=== PATIENT | female | born 1945 | race Caucasian/White ===

== ENCOUNTER → 2017-02-09 | Outpatient (CLI) | payer MEDICARE ==
--- NOTE | 2017-02-15 10:00 | P.ARTDOP ---
Arterial Doppler LOWER EXTREMITY ARTERIAL DOPPLER: DATE OF SERVICE: 02/09/2017 Reason for study: Bilateral claudication. Doppler waveforms: Multiphasic bilaterally throughout. Pulse volume recording: Mild distal blunting. Pressure gradients: None. Ankle-brachial indices: Greater than 1 bilaterally. Toe pressures: 93 on the right, 95 on the left Impression: Normal study.
== END | disposition home or self-care (01) ==
LOC: RADUSWWP 12:51
PROVIDERS: ATTEND Family Medicine
DX: I73.9 Peripheral vascular disease, unspecified (principal)
CPT/HCPCS: 93923

== ENCOUNTER → 2017-10-03 | Outpatient (CLI) | payer MEDICARE ==
--- NOTE | 2017-10-03 15:48 | XR ---
EXAM TYPE: LUMBAR SPINE X RAY SERIES COMPARISON: NONE HISTORY: Pain TECHNIQUE: 4 views are submitted. FINDINGS: Alignment is anatomic. The pedicles are intact. The transverse processes are intact. There is no s pondylolysis or spondylolisthesis. Diffuse osteopenia noted. Surgical clips in the right upper quadr ant. Vascular calcifications noted. Findings suggest previous surgery correlate for hernia repair. Sc lerotic density overlying the right iliac bone is nonspecific. Severe degenerative disc disease at levels L2-S1 with vacuum disc. Severe facet arthropathy. Suspect bilateral foraminal encroachment at these levels. Mild to moderate degenerative disc disease at remai denisse levels. Slight curvature the spine noted. IMPRESSION: 1. Severe multilevel degenerative disc disease and facet arthropathy with suspected bilateral foramin al encroachment levels L2-S1.
== END | disposition home or self-care (01) ==
LOC: RADXRMAIN 15:22
PROVIDERS: ATTEND Family Medicine
DX: M51.36 Other intervertebral disc degeneration, lumbar region (principal); M46.96 Unspecified inflammatory spondylopathy, lumbar region; M47.816 Spondylosis without myelopathy or radiculopathy, lumbar region
CPT/HCPCS: 72100

== ENCOUNTER → 2020-04-10 | Outpatient (CLI) | payer MEDICARE ==
--- NOTE | 2020-05-01 22:31 | EM ---
EVENT MONITOR PROCEDURE: Fourteen days event monitor. REFERRING PHYSICIAN: Dr. Bobby Yepez. INDICATION: Palpitations. FINDINGS: The baseline rhythm appeared to be sinus mechanism. The patient was monitored for 14 days. During these 14 days monitoring, the patient did have multiple episodes of narrow complex tachycardia consistent with paroxysmal atrial tachycardia. No evidence of any sinus pause or sinus arrest. CONCLUSION: 1. This is a 14-day event monitor. 2. The baseline rhythm is a sinus mechanism. 3. The patient did have multiple episodes of supraventricular tachycardia, presented as paroxysmal atrial tachycardia. 4. No evidence of sinus pause or sinus arrest. MMODL / IJN: [id number] /
== END | disposition home or self-care (01) ==
LOC: RADECHMAIN 12:22
PROVIDERS: ATTEND Family Medicine
DX: I47.1 Supraventricular tachycardia (principal); Z88.5 Allergy status to narcotic agent; Z88.9 Allergy status to unspecified drugs, medicaments and biological substances
CPT/HCPCS: 93270

== ENCOUNTER 2021-03-29 16:06 | Emergency (ER) | payer MEDICARE ==
[2021-03-29 16:16] VITALS: BP 146/81; PULSE 68; RESP 18; TEMP 97.9
[2021-03-29 17:03] LABS: Basophils % (A) 1 %; Eosinophils # (A) 0.1 k/uL (0-0.7); Eosinophils % (A) 2 %; HCT 44.5 % (34.0-46.0); HGB 14.7 gm/dL (11.4-16.0); Lymphocytes # (A) 1.8 k/uL (1.0-4.8); Lymphocytes % (A) 34 %; MCH 29.1 pg (25.0-35.0); MCHC 33.2 g/dL (31.0-37.0); MCV 87.9 fL (80.0-100.0); Mean Platelet Volume 6.8; Monocytes # (A) 0.3 k/uL (0-1.0); Monocytes % (A) 5 %; Neutrophils # (A) 2.9 k/uL (1.3-7.7); Neutrophils % (A) 55 %; Platelet Count 265 k/uL (150-450); RBC 5.06 m/uL (3.80-5.40); RDW 13.4 % (11.5-15.5); WBC 5.4 k/uL (3.8-10.6)
--- NOTE | 2021-03-29 17:04 | XR ---
EXAMINATION TYPE: XR chest 2V DATE OF EXAM: 03/29/2021 COMPARISON: 11/19/2013 HISTORY: Chest pain TECHNIQUE: 2 views FINDINGS: Heart and mediastinum are normal. Lungs are clear. Diaphragm is normal. Bony thorax is inta ct. IMPRESSION: Normal chest. No change
[2021-03-29 17:14] LABS: INR 0.9 (<1.2); Partial Thromboplastin Time 22.4 sec (22.0-30.0)
[2021-03-29 17:16] LABS: ALT 18 U/L (4-34); AST 26 U/L (14-36); African American GFR (CKD) >90 (>60 ml/min/1.73 sqM); Albumin 4.8 g/dL (3.5-5.0); Alkaline Phosphatase 73 U/L (38-126); Anion Gap 12 mmol/L; Blood Urea Nitrogen 18 mg/dL (7-17); Calcium 9.9 mg/dL (8.4-10.2); Carbon Dioxide 23 mmol/L (22-30); Chloride 101 mmol/L (98-107); Glucose 189 mg/dL (74-99); Non-African American GFR(CKD) 84 (>60 ml/min/1.73 sqM); Potassium 4.7 mmol/L (3.5-5.1); Sodium 136 mmol/L (137-145); Total Bilirubin 0.3 mg/dL (0.2-1.3)
[2021-03-29] MEDS ORDERED: ASPIRIN 81 MG PO STA (17:22)
[2021-03-29] MEDS ORDERED: NITROGLYCERIN OINT 1 INCH/GM PACKET TOPICAL STA (17:22)
--- NOTE | 2021-03-29 17:25 | ED ---
General Adult HPI - General Chief complaint: Chest Pain Stated complaint: Chest pain,slurred speech Time Seen by Provider: 03/29/21 16:15 Source: patient, RN notes reviewed, old records reviewed Mode of arrival: ambulatory Limitations: no limitations - History of Present Illness Initial comments: This is a 75-year-old female with past medical history significant for diabetes hypertension high cholesterol. Patient also strong family history of heart d isease. Patient comes in today because over the last few weeks she's had multiple episodes of slurred speech which she states only last 1-2 seconds. But she also has been experiencing chest pain that lasts anywhere from 10-20 and it's and she states associated with the chest pain aren't diaphoretic episodes on occasion. Patient denies any difficulty breathing shortness of breath. Patient denies any chest pain currently. Patient denies any radiation of the pain. Patient denies any abdominal pain patient denies nausea vomiting diarrhea. Patient denies any recent fever chills or cough per patient denies any lightheadedness or dizziness or near syncopal episode. - Related Data Home Medications Medication Instructions Recorded Confirmed ALPRAZolam [Xanax] 0.25 mg PO Q8HR PRN 03/20/16 03/20/16 Aspirin 81 mg PO DAILY 03/20/16 03/20/16 Citalopram Hydrobromide [CeleXA] 40 mg PO DAILY 03/20/16 03/20/16 Glimepiride [Amaryl] 4 mg PO AC-BRKFST 03/20/16 03/20/16 HYDROcodone/APAP 10-325MG [[place] 1 tab PO Q6H PRN 03/20/16 03/20/16 10-325] Zafirlukast [Accolate] 20 mg PO BID 03/20/16 03/20/16 Zolpidem Tartrate [Ambien] 5 mg PO HS 03/20/16 03/20/16 sitaGLIPtin [Januvia] 100 mg PO DAILY 03/20/16 03/20/16 Previous Rx's Medication Instructions Recorded Meclizine [Antivert] 25 mg PO TID PRN #20 tab 03/20/16 Ondansetron Odt [Zofran Odt] 4 mg PO Q8HR PRN #12 tab 03/20/16 Allergies Allergy/AdvReac Type Severity Reaction Status Date / Time codeine AdvReac Unknown Verified 03/29/21 16:16 Review of Systems ROS Statement: Those systems with pertinent positive or pertinent negative responses have been documented in the HPI. ROS Other: All systems not noted in ROS Statement are negative. Past Medical History Past Medical History: Diabetes Mellitus, Hypertension History of Any Multi-Drug Resistant Organisms: None Reported Past Surgical History: Cholecystectomy, Hernia Repair, Hysterectomy, Joint Replacement Additional Past Surgical History / Comment(s): right hip replacement Past Psychological History: Anxiety Smoking Status: Never smoker Past Alcohol Use History: Rare Past Drug Use History: None Reported General Exam - General Exam Comments Initial Comments: GENERAL: Patient is well-developed and well-nourished. Patient is nontoxic and well- hydrated and is in mild distress. ENT: Neck is soft and supple. No significant lymphadenopathy is noted. Oropharynx is clear. Moist mucous membranes. Neck has full range of motion without eliciting any pain. EYES: The sclera were anicteric and conjunctiva were pink and moist. Extraocular movements were intact and pupils were equal round and reactive to light. Eyelids were unremarkable. PULMONARY: Unlabored respirations. Good breath sounds bilaterally. No audible rales rhonchi or wheezing was noted. CARDIOVASCULAR: There is a regular rate and rhythm without any murmurs gallops or rubs. ABDOMEN: Soft and nontender with normal bowel sounds. No palpable organomegaly was noted. There is no palpable pulsatile mass. SKIN: Skin is clear with no lesions or rashes and otherwise unremarkable. NEUROLOGIC: Patient is alert and oriented x3. Cranial nerves II through XII are grossly intact. Motor and sensory are also intact. Normal speech, volume and content. Symmetrical smile. Cerebellar exam grossly intact. MUSCULOSKELETAL: Normal extremities with adequate strength and full range of motion. No lower extremity swelling or edema. No calf tenderness. LYMPHATICS: No significant lymphadenopathy is noted PSYCHIATRIC: Normal psychiatric evaluation. Limitations: no limitations Course Vital Signs 03/29/21 16:13 Temperature 97.9 F Pulse Rate 68 Respiratory 18 Rate Blood Pressure 146/81 O2 Sat by Pulse 99 Oximetry Medical Decision Making - Medical Decision Making Patient currently has no symptoms or chest pain or neurologic deficit. EKG shows normal sinus rhythm at 62 bpm ME interval is on her 60 QRS is 62 QT interval 46 QTC is 420. Patient's EKG shows no ST segment elevation or depression. Patient's CT of brain shows no acute abnormality. Patient's troponin was normal. One taken the room and the patient indicated to me she never had any symptoms throughout her whole ED stay. I told the patient because of her chest pain and occasional slurred speech and she refused to stay she stated she has a dog is diabetic and needs his shots. I indicated to her that it still could be her heart or she could've had a TIA so I would recommend staying and again she refused she stated she would follow-up with Dr. Yepez as soon as possible - Lab Data Result diagrams: 03/29/21 16:52 03/29/21 16:52 Lab Results 03/29/21 03/29/21 03/29/21 Range/Units 16:52 16:52 16:52 WBC 5.4 (3.8-10.6) k/uL RBC 5.06 (3.80-5.40) m/uL Hgb 14.7 (11.4-16.0) gm/dL Hct 44.5 (34.0-46.0) % MCV 87.9 (80.0-100.0) fL MCH 29.1 (25.0-35.0) pg MCHC 33.2 (31.0-37.0) g/dL RDW 13.4 (11.5-15.5) % Plt Count 265 (150-450) k/uL MPV 6.8 Neutrophils % 55 % Lymphocytes % 34 % Monocytes % 5 % Eosinophils % 2 % Basophils % 1 % Neutrophils # 2.9 (1.3-7.7) k/uL Lymphocytes # 1.8 (1.0-4.8) k/uL Monocytes # 0.3 (0-1.0) k/uL Eosinophils # 0.1 (0-0.7) k/uL Basophils # 0.0 (0-0.2) k/uL PT 10.0 (9.0-12.0) sec INR 0.9 (<1.2) APTT 22.4 (22.0-30.0) sec Sodium 136 L (137-145) mmol/L Potassium 4.7 (3.5-5.1) mmol/L Chloride 101 (98-107) mmol/L Carbon Dioxide 23 (22-30) mmol/L Anion Gap 12 mmol/L BUN 18 H (7-17) mg/dL Creatinine 0.71 (0.52-1.04) mg/dL Est GFR (CKD-EPI)AfAm >90 (>60 ml/min/1.73 sqM) Est GFR (CKD-EPI)NonAf 84 (>60 ml/min/1.73 sqM) Glucose 189 H (74-99) mg/dL Calcium 9.9 (8.4-10.2) mg/dL Total Bilirubin 0.3 (0.2-1.3) mg/dL AST 26 (14-36) U/L ALT 18 (4-34) U/L Alkaline Phosphatase 73 (38-126) U/L Troponin I (0.000-0.034) ng/mL Total Protein 7.0 (6.3-8.2) g/dL Albumin 4.8 (3.5-5.0) g/dL 03/29/21 Range/Units 16:52 WBC (3.8-10.6) k/uL RBC (3.80-5.40) m/uL Hgb (11.4-16.0) gm/dL Hct (34.0-46.0) % MCV (80.0-100.0) fL MCH (25.0-35.0) pg MCHC (31.0-37.0) g/dL RDW (11.5-15.5) % Plt Count (150-450) k/uL MPV Neutrophils % % Lymphocytes % % Monocytes % % Eosinophils % % Basophils % % Neutrophils # (1.3-7.7) k/uL Lymphocytes # (1.0-4.8) k/uL Monocytes # (0-1.0) k/uL Eosinophils # (0-0.7) k/uL Basophils # (0-0.2) k/uL PT (9.0-12.0) sec INR (<1.2) APTT (22.0-30.0) sec Sodium (137-145) mmol/L Potassium (3.5-5.1) mmol/L Chloride (98-107) mmol/L Carbon Dioxide (22-30) mmol/L Anion Gap mmol/L BUN (7-17) mg/dL Creatinine (0.52-1.04) mg/dL Est GFR (CKD-EPI)AfAm (>60 ml/min/1.73 sqM) Est GFR (CKD-EPI)NonAf (>60 ml/min/1.73 sqM) Glucose (74-99) mg/dL Calcium (8.4-10.2) mg/dL Total Bilirubin (0.2-1.3) mg/dL AST (14-36) U/L ALT (4-34) U/L Alkaline Phosphatase (38-126) U/L Troponin I <0.012 (0.000-0.034) ng/mL Total Protein (6.3-8.2) g/dL Albumin (3.5-5.0) g/dL Disposition Clinical Impression: Chest pain, TIA (transient ischemic attack) Disposition: Left Against Medical Advice Instructions (If sedation given, give patient instructions): Chest Pain (ED), Transient Ischemic Attack (ED) Referrals: Bobby Yepez DO [Primary Care Provider] - 1-2 days Time of Disposition: 18:52
--- NOTE | 2021-03-29 18:32 | CT ---
EXAMINATION TYPE: CT brain wo con DATE OF EXAM: 03/29/2021 COMPARISON: 04/19/2016 HISTORY: Slurred speech for [address] DLP: 1143.4 mGycm Automated exposure control for dose reduction was used. There is mild cerebral atrophy. There is no mass effect nor midline shift. There is no sign of intrac ranial hemorrhage. Calvarium is intact. The skull base is intact. There is normal aeration of the mas toid sinuses. IMPRESSION: Cerebral atrophy. No acute intracranial abnormality. No change.
== END 2021-03-29 19:08 | disposition left against medical advice (07) ==
LOC: EC 16:06
DX: G45.9 Transient cerebral ischemic attack, unspecified (principal); E11.9 Type 2 diabetes mellitus without complications; I10 Essential (primary) hypertension
CPT/HCPCS: 36415; 70450; 71046; 80053; 84484; 85025; 85610; 85730; 93005; 99285

== ENCOUNTER → 2021-08-02 | Outpatient (CLI) | payer MEDICARE ==
--- NOTE | 2021-08-02 23:09 | US ---
EXAMINATION TYPE: US carotid duplex BILAT DATE OF EXAM: 08/02/2021 COMPARISON: 04/19/2016 CLINICAL HISTORY: 75-year-old female G51.9 FACIAL NUMBNESS. TECHNIQUE: Carotid duplex ultrasound examination. In the erect upper criteria is utilized. FINDINGS: EXAM MEASUREMENTS: RIGHT: Peak Systolic Velocity (PSV) cm/sec ----- Right CCA: 58.1 ----- Right ICA: 104.3 ----- Right ECA: 83.6 ICA/CCA ratio: 1.8 RIGHT: End Diastole cm/sec ----- Right CCA: 12.5 ----- Right ICA: 35.7 ----- Right ECA: 0.0 LEFT: Peak Systolic Velocity (PSV) cm/sec ----- Left CCA: 54.6 ----- Left ICA: 99.6 ----- Left ECA: 62.2 ICA/CCA ratio: 1.8 LEFT: End Diastole cm/sec ----- Left CCA: 11.0 ----- Left ICA: 33.6 ----- Left ECA: 0.0 VERTEBRALS (direction of flow): Right Vertebral: Antegrade Left Vertebral: Antegrade Rhythm: Normal Reverberatory Skimmer notes: No significant stenosis seen. [id number] shadowing plaque noted. IMPRESSION: No hemodynamically significant internal carotid artery stenosis on either side. Criteria for Assigning % of Stenosis / Diameter reduction (Estimation based on the indirect measurements of the internal carotid artery velocities (ICA PSV). 1. Normal (no stenosis)=ICA PSV < 125 cm/s: ratio < 2.0: ICA EDV<40 cm/s. 2. Less than 50% stenosis=ICA PSV < 125 cm/s: ratio < 2.0: ICA EDV<40 cm/s. 3. 50 to 69% stenosis=ICA PSV of 125 to 230 cm/s: ration 2.0 ? 4.0: ICA EDV 40-100 cm/s. 4. Greater than 70% stenosis to near occlusion= ICA PSV > 230 cm/s: ratio > 4.0: ICA EDV > 100 cm/s. 5. Near occlusion= ICA PSV velocities may be low or undetectable: variable ratio and ICA EDV. 6. Total occlusion=unable to detect flow.
== END | disposition home or self-care (01) ==
LOC: RADUSWWP 15:27
PROVIDERS: ATTEND Family Medicine
DX: G51.9 Disorder of facial nerve, unspecified (principal)
CPT/HCPCS: 93880

== ENCOUNTER → 2022-05-26 | Outpatient (CLI) | payer MEDICARE ==
[2022-05-26 15:58] LABS: Basophils # (A) 0.04 X 10*3/uL (0.00-0.10); Basophils % (A) 0.9 %; Eosinophils # (A) 0.16 X 10*3/uL (0.04-0.35); Eosinophils % (A) 3.5 %; HCT 40.7 % (37.2-46.3); HGB 13.3 g/dL (12.0-15.0); Immature Grans, Automated 0.7 %; Lymphocytes # (A) 2.04 X 10*3/uL (0.90-5.00); Lymphocytes % (A) 44.9 %; MCH 29.2 pg (27.0-32.0); MCHC 32.7 g/dL (32.0-37.0); MCV 89.5 fL (80.0-97.0); Mean Platelet Volume 9.7 fL (9.5-12.2); Monocytes # (A) 0.35 X 10*3/uL (0.20-1.00); Monocytes % (A) 7.7 %; NRBC Per 100 WBC 0 /100 WBCS (0.0-0.0); Neutrophils # (A) 1.92 X 10*3/uL (1.80-7.70); Neutrophils % (A) 42.3 %; Platelet Count 241 X 10*3/uL (140-440); RBC 4.55 X 10*6/uL (4.10-5.20); RDW 14.4 % (11.5-14.5); WBC 4.54 X 10*3/uL (4.50-10.00)
[2022-05-26 16:02] LABS: African American GFR (CKD) 99.3 (60.0-200.0); Albumin 4.1 g/dL (3.8-4.9); Albumin/Globulin Ratio 2.02 (1.60-3.17); Anion Gap 11.1 mmol/L (10.00-18.00); BUN/Creat Ratio 32.08 Ratio (12.00-20.00); Blood Urea Nitrogen 21.3 mg/dL (9.0-27.0); Calcium 9.2 mg/dL (8.7-10.3); Carbon Dioxide 23.2 mmol/L (20.0-27.5); Non-African American GFR(CKD) 85.6 (60.0-200.0); Potassium 5.2 mmol/L (3.5-5.5); T4, Free (Free Thyroxine) 1.01 ng/dL (0.800-1.800); Total Bilirubin 0.3 mg/dL (0.30-1.20); Total Protein 6.1 g/dL (6.2-8.2)
== END | disposition home or self-care (01) ==
LOC: LABWHC1 09:50
PROVIDERS: ATTEND Family Medicine
DX: Z00.00 Encounter for general adult medical examination without abnormal findings (principal); I10 Essential (primary) hypertension; E11.9 Type 2 diabetes mellitus without complications; M79.606 Pain in leg, unspecified
CPT/HCPCS: 36415; 80053; 82306; 83036; 84439; 84443; 85025; 85379

== ENCOUNTER 2022-12-19 17:04 | Observation (INO) | payer MEDICARE ==
[2022-12-19 17:16] LABS: Glucose,Whole Blood 144 mg/dL (70-110)
--- NOTE | 2022-12-19 17:17 | ED ---
Neuro HPI - General Chief Complaint: Neuro Symptoms/Deficit Stated Complaint: Possible Stroke Time Seen by Provider: 12/19/22 17:07 Source: patient, EMS, RN notes reviewed Mode of arrival: EMS Limitations: no limitations - History of Present Illness Is the patient presenting with stroke symptoms?: No Initial Comments: 77-year-old female no prior history of stroke or TIAs she does have a history of anxiety as well as hypertension no history of kidney problems who about 45 minutes prior to arrival after vacuuming started developing some numbness to the right side of her face and upper extremity on the same side some drooling. Some expressive aphasia some slurred speech. This seems to totally resolved since the onset upon her arrival here. She states she felt like pins and needles sensation to her face and upper extremity this is also since resolved. He denies any trauma fevers chills nausea vomiting sweats no blurry vision no headaches no other symptoms or modifying factors at this time - Related Data Home Medications: Home Medications Medication Instructions Recorded Confirmed ALPRAZolam [Xanax] 0.25 mg PO Q8HR PRN 03/20/16 03/20/16 Aspirin 81 mg PO DAILY 03/20/16 03/20/16 Citalopram Hydrobromide [CeleXA] 40 mg PO DAILY 03/20/16 03/20/16 Glimepiride [Amaryl] 4 mg PO AC-BRKFST 03/20/16 03/20/16 HYDROcodone/APAP 10-325MG [[place] 1 tab PO Q6H PRN 03/20/16 03/20/16 10-325] Zafirlukast [Accolate] 20 mg PO BID 03/20/16 03/20/16 Zolpidem Tartrate [Ambien] 5 mg PO HS 03/20/16 03/20/16 sitaGLIPtin [Januvia] 100 mg PO DAILY 03/20/16 03/20/16 Previous Rx's Medication Instructions Recorded Meclizine [Antivert] 25 mg PO TID PRN #20 tab 03/20/16 Ondansetron Odt [Zofran Odt] 4 mg PO Q8HR PRN #12 tab 03/20/16 Allergies/Adverse Reactions: Allergies Allergy/AdvReac Type Severity Reaction Status Date / Time codeine AdvReac Unknown Verified 07/19/21 16:16 Review of Systems ROS Statement: Those systems with pertinent positive or pertinent negative responses have been documented in the HPI. ROS Other: All systems not noted in ROS Statement are negative. General Exam - General Exam Comments Initial Comments: This is a well-developed well-nourished awake alert oriented 4 female Limitations: no limitations General appearance: alert, in no apparent distress Head exam: Present: atraumatic, normocephalic, normal inspection Eye exam: Present: normal appearance, PERRL, EOMI. Absent: scleral icterus, conjunctival injection, periorbital swelling ENT exam: Present: normal exam, mucous membranes moist Neck exam: Present: normal inspection, full ROM, other (No stridor JVD or bruits). Absent: tenderness, meningismus, lymphadenopathy Respiratory exam: Present: normal lung sounds bilaterally. Absent: respiratory distress, wheezes, rales, rhonchi, stridor Cardiovascular Exam: Present: regular rate, normal rhythm, normal heart sounds. Absent: systolic murmur, diastolic murmur, rubs, gallop, clicks GI/Abdominal exam: Present: soft, normal bowel sounds. Absent: distended, tenderness, guarding, rebound, rigid Extremities exam: Present: normal inspection, full ROM, normal capillary refill. Absent: tenderness, pedal edema, joint swelling, calf tenderness Back exam: Present: normal inspection Neurological exam: Present: alert, oriented X3, CN II-XII intact Psychiatric exam: Present: normal affect, normal mood Skin exam: Present: warm, dry, intact, normal color. Absent: rash Stroke MDM - Lab Data Result diagrams: 12/19/22 17:16 12/19/22 17:16 Lab Results 12/19/22 12/19/22 12/19/22 Range/Units 17:14 17:16 17:16 WBC 5.5 (3.8-10.6) k/uL RBC 5.49 H (3.80-5.40) m/uL Hgb 15.9 (11.4-16.0) gm/dL Hct 47.3 H (34.0-46.0) % MCV 86.2 (80.0-100.0) fL MCH 28.9 (25.0-35.0) pg MCHC 33.6 (31.0-37.0) g/dL RDW 13.6 (11.5-15.5) % Plt Count 221 (150-450) k/uL MPV 7.4 Neutrophils % 50 % Lymphocytes % 39 % Monocytes % 5 % Eosinophils % 3 % Basophils % 1 % Neutrophils # 2.7 (1.3-7.7) k/uL Lymphocytes # 2.1 (1.0-4.8) k/uL Monocytes # 0.3 (0-1.0) k/uL Eosinophils # 0.2 (0-0.7) k/uL Basophils # 0.0 (0-0.2) k/uL PT 9.7 (9.0-12.0) sec INR 0.9 (<1.2) APTT 21.5 L (22.0-30.0) sec Sodium (137-145) mmol/L Potassium (3.5-5.1) mmol/L Chloride (98-107) mmol/L Carbon Dioxide (22-30) mmol/L Anion Gap mmol/L BUN (7-17) mg/dL Creatinine (0.52-1.04) mg/dL Est GFR (CKD-EPI)AfAm (>60 ml/min/1.73 sqM) Est GFR (CKD-EPI)NonAf (>60 ml/min/1.73 sqM) Glucose (74-99) mg/dL POC Glucose (mg/dL) 144 H (70-110) mg/dL POC Glu Immigration Case Worker CASTILLO Mookie Gtz Calcium (8.4-10.2) mg/dL Total Bilirubin (0.2-1.3) mg/dL AST (14-36) U/L ALT (4-34) U/L Alkaline Phosphatase (38-126) U/L Creatine Kinase (30-135) U/L Troponin I (0.000-0.034) ng/mL Total Protein (6.3-8.2) g/dL Albumin (3.5-5.0) g/dL 12/19/22 12/19/22 12/19/22 Range/Units 17:16 17:16 17:32 WBC (3.8-10.6) k/uL RBC (3.80-5.40) m/uL Hgb (11.4-16.0) gm/dL Hct (34.0-46.0) % MCV (80.0-100.0) fL MCH (25.0-35.0) pg MCHC (31.0-37.0) g/dL RDW (11.5-15.5) % Plt Count (150-450) k/uL MPV Neutrophils % % Lymphocytes % % Monocytes % % Eosinophils % % Basophils % % Neutrophils # (1.3-7.7) k/uL Lymphocytes # (1.0-4.8) k/uL Monocytes # (0-1.0) k/uL Eosinophils # (0-0.7) k/uL Basophils # (0-0.2) k/uL PT (9.0-12.0) sec INR (<1.2) APTT (22.0-30.0) sec Sodium 134 L (137-145) mmol/L Potassium 5.5 H (3.5-5.1) mmol/L Chloride 99 (98-107) mmol/L Carbon Dioxide 27 (22-30) mmol/L Anion Gap 8 mmol/L BUN 20 H (7-17) mg/dL Creatinine 0.71 (0.52-1.04) mg/dL Est GFR (CKD-EPI)AfAm >90 (>60 ml/min/1.73 sqM) Est GFR (CKD-EPI)NonAf 83 (>60 ml/min/1.73 sqM) Glucose 156 H (74-99) mg/dL POC Glucose (mg/dL) (70-110) mg/dL POC Glu Immigration Case Worker ID Calcium 9.8 (8.4-10.2) mg/dL Total Bilirubin 0.5 (0.2-1.3) mg/dL AST 27 (14-36) U/L ALT 25 (4-34) U/L Alkaline Phosphatase 66 (38-126) U/L Creatine Kinase 56 (30-135) U/L Troponin I <0.012 (0.000-0.034) ng/mL Total Protein 7.5 (6.3-8.2) g/dL Albumin 4.7 (3.5-5.0) g/dL - NIH Stroke Scale 1a. Level of Consciousness: (0) alert 1b. LOC Questions: (0) answers correctly 1c. LOC Commands: (0) performs tasks correctly 2. Best Gaze: (0) normal 3. Visual: (0) no visual loss 4. Facial Palsy: (0) normal symmetrical movement 5a. Motor Arm Left: (0) no drift 5b. Motor Arm Right: (0) no drift 6a. Motor Leg Left: (0) no drift 6b. Motor Leg Right: (0) no drift 7. Limb Ataxia: (0) absent 8. Sensory: (0) normal 9. Best Language: (0) no aphasia 10. Dysarthria: (0) normal 11. Extinction/Inattention: (0) no abnormality - Radiology Data interpreted by me: I did interpret the x-rays as well as the CTs no evidence of acute processes seen no acute obstructions. No evidence of any mass affect. I did discuss findings with the patient also with Dr. Stevenson covering for Dr. Hare patient be admitted with neurological consultation by Dr. Dustin Castro. Was pt. sent in by a medical professional or institution (, PA, NONDESTRUCTIVE TESTER, urgent care, hospital, or fpc...) When possible be specific @ -[No] Did you speak to anyone other than the patient for history (EMS, parent, family, police, friend...)? What history was obtained from this source @ -[Paramedics upon arrival] Did you review nursing and triage notes (agree or disagree)? Why? @ -[I reviewed and agree with nursing and triage notes] Were old charts reviewed (outside hosp., previous admission, EMS record, old EKG, old radiological studies, urgent care reports/EKG's, fpc records)? Report findings @ -[No old charts were reviewed] Differential Diagnosis (chest pain, altered mental status, abdominal pain women, abdominal pain men, vaginal bleeding, weakness, fever, dyspnea, syncope, headache, dizziness, GI bleed, back pain, seizure, CVA, palpatations, mental health, musculoskeletal)? @ -[CVA, TIA, hypoglycemic episode] EKG interpreted by me (3pts min.). @ -[As above] X-rays interpreted by me (1pt min.). @ -[As above] CT interpreted by me (1pt min.). @ As above] U/S interpreted by me (1pt. min.). @ -[None done] What testing was considered but not performed or refused? (CT, X-rays, U/S, labs)? Why? @ -[None] What meds were considered but not given or refused? Why? @ -[None] Did you discuss the management of the patient with other professionals (professionals i.e. , PA, NONDESTRUCTIVE TESTER, lab, RT, psych nurse, social service liaison, geomagnetist, teacher, motor equipment commanding officer, registered nurse hh case manager)? Give summary @ -[Dr. Matta] Was smoking cessation discussed for >3mins.? @ -[No] Was critical care preformed (if so, how long)? @ -[35 minutes] Were there social determinants of health that impacted care today? How? (Homelessness, low income, unemployed, alcoholism, drug addiction, transporta tion, low edu. Level, literacy, decrease access to med. care, long term, rehab)? @ -[No] Was there de-escalation of care discussed even if they declined (Discuss DNR or withdrawal of care, Hospice)? DNR status @ -[No] What co-morbidities impacted this encounter? (DM, HTN, Smoking, COPD, CAD, Cancer, CVA, ARF, Chemo, Hep., AIDS, mental health diagnosis, sleep apnea, morbid obesity)? @ -[Diabetes, hypertension] Was patient admitted / discharged? Hospital course, mention meds given and rou te, prescriptions, significant lab abnormalities, going to OR and other pertinent info. @ -[Shows admitted for inpatient evaluation for TIA. Dr. Castro from neurology will be consulted] Undiagnosed new problem with uncertain prognosis? @ -[No] Drug Therapy requiring intensive monitoring for toxicity (Heparin, Nitro, Insul in, Cardizem)? @ -[No] Were any procedures done? @ -[No] Diagnosis/symptom? @ -[TIA, anxiety] Acute, or Chronic, or Acute on Chronic? @ -[Acute] Uncomplicated (without systemic symptoms) or Complicated (systemic symptoms)? @ -[default] Side effects of treatment? @ -[No] Exacerbation, Progression, or Severe Exacerbation? @ -[No] Poses a threat to life or bodily function? How? (Chest pain, [place], [place], pneumonia, PE, COPD, DKA, ARF, appy, cholecystitis, CVA, Diverticulitis, Homicidal, Suicidal, threat to staff... and all critical care pts) @ -[TIA potential if not worked up] - EKG Data -: EKG Interpreted by Me (EKG interpreted by me sinus rhythm a 65. Interval 162 QRS duration 71 QT s) Past Medical History Past Medical History: Diabetes Mellitus, Hypertension History of Any Multi-Drug Resistant Organisms: None Reported Past Surgical History: Cholecystectomy, Hernia Repair, Hysterectomy, Joint Replacement Additional Past Surgical History / Comment(s): right hip replacement Past Psychological History: Anxiety Smoking Status: Never smoker Past Alcohol Use History: Rare Past Drug Use History: None Reported Course Vital Signs 12/19/22 12/19/22 17:06 19:49 Pulse Rate 69 60 Respiratory 18 16 Rate Blood Pressure 195/149 159/86 O2 Sat by Pulse 98 95 Oximetry - Reevaluation(s) Reevaluation #1: 12/19/22 19:56 Patient was reevaluated after she stated the symptoms seem to be coming back again however when distracted patient's speech was normal. Very anxious and she would have some trouble phonating again that she would become normal no evidence of any focal deficits. Critical Care Time Critical Care Time: Yes Total Critical Care Time: 35 Disposition Clinical Impression: Transient cerebral ischemia, Anxiety Disposition: ADMITTED IP TO THIS HOSP Condition: Fair Referrals: Bobby Yepez DO [Primary Care Provider] - 1-2 days Decision Date: 12/19/22 Decision Time: 20:03
[2022-12-19 17:24] LABS: Basophils % (A) 1 %; Eosinophils # (A) 0.2 k/uL (0-0.7); Eosinophils % (A) 3 %; HCT 47.3 % (34.0-46.0); HGB 15.9 gm/dL (11.4-16.0); Lymphocytes # (A) 2.1 k/uL (1.0-4.8); Lymphocytes % (A) 39 %; MCH 28.9 pg (25.0-35.0); MCHC 33.6 g/dL (31.0-37.0); MCV 86.2 fL (80.0-100.0); Mean Platelet Volume 7.4; Monocytes # (A) 0.3 k/uL (0-1.0); Monocytes % (A) 5 %; Neutrophils # (A) 2.7 k/uL (1.3-7.7); Neutrophils % (A) 50 %; Platelet Count 221 k/uL (150-450); RBC 5.49 m/uL (3.80-5.40); RDW 13.6 % (11.5-15.5); WBC 5.5 k/uL (3.8-10.6)
[2022-12-19 17:34] LABS: ALT 25 U/L (4-34); African American GFR (CKD) >90 (>60 ml/min/1.73 sqM); Albumin 4.7 g/dL (3.5-5.0); Anion Gap 8 mmol/L; Blood Urea Nitrogen 20 mg/dL (7-17); Calcium 9.8 mg/dL (8.4-10.2); Carbon Dioxide 27 mmol/L (22-30); Chloride 99 mmol/L (98-107); Glucose 156 mg/dL (74-99); Non-African American GFR(CKD) 83 (>60 ml/min/1.73 sqM); Sodium 134 mmol/L (137-145); Total Bilirubin 0.5 mg/dL (0.2-1.3); Total Protein 7.5 g/dL (6.3-8.2)
[2022-12-19 17:39] LABS: Potassium 5.5 mmol/L (3.5-5.1)
[2022-12-19 17:40] LABS: AST 27 U/L (14-36); Alkaline Phosphatase 66 U/L (38-126)
--- NOTE | 2022-12-19 17:41 | XR ---
EXAMINATION TYPE: XR chest 2V DATE OF EXAM: 12/19/2022 COMPARISON: 03/29/2021 INDICATION: Not available TECHNIQUE: Frontal and lateral views of the chest are obtained. FINDINGS: The heart size is normal. The pulmonary vasculature is normal. The lungs are clear. IMPRESSION: 1. No acute pulmonary process.
[2022-12-19 17:54] LABS: INR 0.9 (<1.2); Partial Thromboplastin Time 21.5 sec (22.0-30.0); Prothrombin Time 9.7 sec (9.0-12.0)
--- NOTE | 2022-12-19 18:42 | CT ---
EXAMINATION TYPE: CT brain wo con DATE OF EXAM: 12/19/2022 COMPARISON: INDICATION: right arm weakness, tingeling, right facial numbess DLP: 1556.2 mGycm, Automated exposure control for dose reduction was used. CONTRAST: None CT of the brain is performed utilizing 3 mm thick sections through the posterior fossa and 3 mm thick sections through the remaining calvarium. Study is performed within 24 hours of arrival to the hosp [facility]. No abnormal hyperdensity is present to suggest an acute intracranial hemorrhage. No mass lesion is evident. No acute infarcts are evident. Ventricles and sulci are mildly prominent for the patient age. Paranasal sinuses and mastoid air cells within the [id number] are clear. IMPRESSIONS: 1. Atrophy. 2. No acute intracranial process. Follow-up MRI can be performed as clinically indicated.
--- NOTE | 2022-12-19 19:17 | CT ---
EXAMINATION TYPE: CT angio head neck DATE OF EXAM: 12/19/2022 HISTORY: right arm weakness, tingling, right facial numbness COMPARISON: CT DLP: 1556.2 mGycm. Automated Exposure Control for Dose Reduction was Utilized. TECHNIQUE: CTA scan of the neck is performed with IV Contrast, patient injected with 65 mL of Isovue 370, axial images are obtained, coronal and sagittal reformatted images are reviewed. Three-D recons tructed images are created on an independent workstation and reviewed. Source images are reviewed. FINDINGS: Carotid/Vascular Structures: There is a three-vessel arch. Vertebral arteries are codominant. Common carotid arteries bifurcate normally into internal and external carotid arteries. No focal stenosis is evident. It is noted in the internal carotid arteries are somewhat midline. Cervical of [place]: Vertebral basilar system appears normal. Basilar tip appears somewhat prominent h owever, 3-D reconstructed images this may be related to the somewhat more horizontal positioning of t he basilar tip. Posterior cerebral vasculature is unremarkable. Internal carotid arteries bifurcate n ormally into A1 and M1 segments. A2 segments are normal. The anterior communicating artery is patent. Left Posterior communicating artery is patent. Right posterior communicating artery is patent. IMPRESSION: 1. No flow-limiting stenosis bilateral carotid bifurcations. 2. More medial location for internal carotid arteries below the skull base. 3. Normal [place] of [place]. NASCET criteria was used in interpretation of this exam?
[2022-12-19] MEDS ORDERED: ASPIRIN 325 MG TAB PO STA (20:04)
[2022-12-19] MEDS ORDERED: MECLIZINE 25 MG TAB PO PRN (20:06)
[2022-12-19] MEDS ORDERED: ONDANSETRON ODT 4 MG TAB PO PRN (20:06)
[2022-12-19] MEDS ORDERED: ALPRAZolam 0.25 MG TAB PO PRN ×2 (20:06→20:43)
[2022-12-19] MEDS ORDERED: HYDROcodone/APAP 10-325MG 1 EACH TAB PO PRN (20:06)
[2022-12-19] MEDS ORDERED: MELOXICAM 7.5 MG TAB PO PRN (20:50)
[2022-12-19] MEDS ORDERED: MONTELUKAST 10 MG TAB PO SCH (21:00)
[2022-12-19] MEDS ORDERED: ZOLPIDEM 5 MG TAB PO SCH (21:00)
[2022-12-19] MEDS: ZOLPIDEM 5 MG TAB PO SCH (21:28)
[2022-12-19] MEDS: CITALOPRAM HYDROBROMIDE 20 MG TAB PO SCH (21:28)
[2022-12-19] MEDS: HYDROcodone/APAP 10-325MG 1 EACH TAB PO SCH (21:28)
[2022-12-19] MEDS: GLIMEPIRIDE 4 MG TAB PO SCH (21:29)
[2022-12-19] MEDS: SODIUM CHLORIDE 0.9% 1,000 ML IV SCH (21:31)
[2022-12-20 00:02] LABS: Glucose,Whole Blood 223 mg/dL (70-110)
[2022-12-20] MEDS: HYDROcodone/APAP 10-325MG 1 EACH TAB PO SCH ×4 (03:52→20:31)
[2022-12-20] MEDS: SODIUM CHLORIDE 0.9% 1,000 ML IV SCH ×2 (03:55→17:36)
[2022-12-20 06:09] LABS: Glucose,Whole Blood 135 mg/dL (70-110)
[2022-12-20] MEDS ORDERED: GLIMEPIRIDE 4 MG TAB PO SCH (07:30)
[2022-12-20] MEDS: CYANOCOBALAMIN 500 MCG TAB PO SCH (08:50)
[2022-12-20] MEDS: MAGNESIUM OXIDE 400 MG TAB PO SCH (08:50)
[2022-12-20] MEDS: CHOLECALCIFEROL 25 MCG (1000 IU) TABLET PO SCH (08:50)
[2022-12-20] MEDS: CLOPIDOGREL 75 MG TAB PO SCH (08:50)
[2022-12-20] MEDS: DAPAGLIFLOZIN PROPANEDIOL 10 MG TABLET PO SCH (08:52)
[2022-12-20] MEDS ORDERED: LINAGLIPTIN 5 MG TABLET PO SCH (09:00)
[2022-12-20] MEDS ORDERED: ASPIRIN 325 MG TAB PO SCH (09:00)
[2022-12-20] MEDS ORDERED: SODIUM ZIRCONIUM CYCLOSILICATE 10 GM PACKET PO ONE (10:00)
[2022-12-20 11:40] LABS: Glucose,Whole Blood 166 mg/dL (70-110)
[2022-12-20 11:41] LABS: African American GFR (CKD) >90 (>60 ml/min/1.73 sqM); Anion Gap 11 mmol/L; Blood Urea Nitrogen 18 mg/dL (7-17); Calcium 9.1 mg/dL (8.4-10.2); Carbon Dioxide 20 mmol/L (22-30); Chloride 105 mmol/L (98-107); Glucose 166 mg/dL (74-99); Non-African American GFR(CKD) 87 (>60 ml/min/1.73 sqM); Sodium 136 mmol/L (137-145)
[2022-12-20 11:53] LABS: Potassium 5.1 mmol/L (3.5-5.1)
[2022-12-20] MEDS: ATORVASTATIN 40 MG TAB PO SCH (12:11)
--- NOTE | 2022-12-20 12:36 | P.CNNES ---
History of Present Illness Consult date: 12/20/22 Requesting physician: Govind Rosales Reason for Consult: TIA History of Present Illness: This is a 77-year-old woman with history of 5 diabetes, hypertension who presented emergency department because of numbness. Patient stated that yesterday at initially around 4 PM she knows that her right face especially of the cheek was numb as well as right hand was numb and the episode was resolved within 15 minutes. Then at around 7 PM she had another episode but this time she was having prickling sensation around her mouth as well as right upper extremity and the episode lasted the about 5 minutes. She denies any history of stroke or TIA in the past. Patient states that she feels back to baseline. He denies any history of atrial fibrillation or being on any anticoagulation. She takes aspirin 81 mg daily. She has had diabetes for the past 10 years and her sugar fluctuates. While her blood pressure is a controlled. Some of the workup during his hospital visit consisted of: Sodium is 134, potassium is 5.5, initial POC glucose is 144. CT of the head is reported as atrophy. No acute intracranial process. Follow- up MRI can be performed is currently indicated. Personally reviewed the CT and there is no acute subacute ischemia. CT angiography of the head and neck was reported as no flow-limiting stenosis b ilateral carotid bifurcation. More medial location for internal carotid artery below the skull base. Normal [place]. She did not get IV TPA since the patient's symptoms has resolved and the risk outweighed the benefit Review of Systems Review of system: The 12 point system was reviewed and apparent positive and negative per HPI. Past Medical History Past Medical History: Diabetes Mellitus, Hypertension History of Any Multi-Drug Resistant Organisms: None Reported Past Surgical History: Cholecystectomy, Hernia Repair, Hysterectomy, Joint Replacement Additional Past Surgical History / Comment(s): right hip replacement Past Psychological History: Anxiety Smoking Status: Never smoker Past Alcohol Use History: Rare Past Drug Use History: None Reported - Past Family History Father Family Medical History: Chest Pain / Angina, Myocardial Infarction ([place]) Mother Family Medical History: CVA/TIA Sister(s) Family Medical History: COPD Medications and Allergies Home Medications Medication Instructions Recorded Confirmed Type ALPRAZolam [Xanax] 0.25 mg PO BID PRN 03/20/16 12/19/22 History Aspirin 81 mg PO HS@2100 03/20/1612/19/23 History Citalopram Hydrobromide [CeleXA] 40 mg PO HS@209903/20/16 12/19/22 History Glimepiride [Amaryl] 4 mg PO BID@1500,2100 03/20/16 12/19/22 History HYDROcodone/APAP 10-325MG [[place] 1 tab PO QID@03,09,15,21 03/20/16 12/19/22 History 10-325] Cholecalciferol [Vitamin D3 (25 50 mcg PO DAILY 12/19/22 12/19/22 History Mcg = 1000 Iu)] Cyanocobalamin [Vitamin B-12] 500 mcg PO DAILY 12/19/22 12/19/22 History Empagliflozin [Jardiance] 25 mg PO DAILY@0900 12/19/22 12/19/22 History Magnesium 250 mg PO DAILY 12/19/22 12/19/22 History Meloxicam [Mobic] 7.5 mg PO BID PRN 12/19/22 12/19/22 History Zolpidem [Ambien] 10 mg PO HS@209912/19/22 12/19/22 History Allergies Allergy/AdvReac Type Severity Reaction Status Date / Time codeine AdvReac Unknown Verified 12/19/22 20:23 Physical Examination - Vital Signs Vital Signs: Vital Signs Temp Pulse Pulse Resp BP BP Pulse Ox 12/20/22 08:48 76 16 153/86 96 12/20/22 08:41 97 12/20/22 04:00 97.9 F 74 16 147/87 94 L 12/20/22 00:00 97.9 F 69 16 161/82 98 12/19/22 21:43 71 18 171/81 98 12/19/22 20:14 98.6 F 12/19/22 19:49 60 16 159/86 95 12/19/22 17:06 69 18 195/149 98 Intake and Output 12/19/22 12/20/22 12/20/22 22:59 06:59 14:59 Intake Total 240 240 Balance 240 240 Intake: Oral 240 240 Other: Voiding Method Toilet Toilet # Voids 0 Weight 74.843 kg GENERAL: The patient is lying in bed and is not in acute distress. CHEST: The heart rate is regular rate rhythm. No murmurs to auscultation. LUNG: Clear to auscultation bilaterally no wheezing noted throughout. Not labored breathing. ABDOMEN/GI: Bowel sounds present in all 4 quadrants. No tenderness to palpation throughout. NEUROLOGICAL: Higher mental function: The patient is awake, alert, oriented to self, place and time. Patient is following commands. No aphasia and no neglect. Cranial nerves: The pupils are round, equal and reactive to light and accommodation. Visual [place] are full to confrontation throughout. Extraocular movement is intact no nystagmus is noted. Facial sensation is normal to touch throughout. The facial strength is normal throughout. Hearing is normal bilaterally to hand rub. Tongue is midline and moved [id number] without any difficulty. No dysarthria is noted. Shoulder shrug is normal bilaterally. Motor: The strength is 5 over 5 throughout. Normal tone and bulk. Cerebellum: Normal finger to nose bilaterally. Sensation: Sensation is normal to touch throughout. Reflexes (right/left): 1+ throughout. Plantars are downgoing bilaterally. Results - Laboratory Findings CBC and BMP: 12/19/22 17:16 12/20/22 10:20 Abnormal Lab Findings: Abnormal Labs 12/19/22 12/19/22 12/19/22 17:14 17:16 17:16 RBC 5.49 H Hct 47.3 H APTT 21.5 L Sodium Potassium Carbon Dioxide BUN Glucose POC Glucose (mg/dL) 144 H 12/19/22 12/20/22 12/20/22 17:16 00:00 06:07 RBC Hct APTT Sodium 134 L Potassium 5.5 H Carbon Dioxide BUN 20 H Glucose 156 H POC Glucose (mg/dL) 223 H 135 H 12/20/22 12/20/22 10:20 11:38 RBC Hct APTT Sodium 136 L Potassium Carbon Dioxide 20 L BUN 18 H Glucose 166 H POC Glucose (mg/dL) 166 H Assessment and Plan Assessment: This is a 77-year-old woman who presented that because of the numbness then later a prickling sensation over the face and upper extremity and the first episode lasted within 50 minutes and the second lasted within 5 minutes. Transischemic attack. Diabetes mellitus and had that for 10 years Hypertension Plan: In addition to the aspirin she started on Plavix 75 mg daily. I agree with the with a dual antiplatelets for 21 days and after 21 stop aspirin but continue Plavix indefinitely. She is on Lipitor 40 mg daily for secondary stroke prophylaxis Patient declined MRI this is claustrophobic. I ordered carotid duplex as well as 2-D echo. Lipid panel is ordered and I ordered also hemoglobin A1c PT OT and RU[employer]ER [employer] SUPERVISOR are consulted Continue neuro checks On cardiac monitoring We'll defer the rest of the medical and has been to the primary team For DVT prophylaxis I start the patient on subcu heparin 5000 units every 8 hours The plan was discussed with the patient Thank you for the consultation Time with Patient: Greater than 30
--- NOTE | 2022-12-20 13:15 | P.HPIM ---
History of Present Illness H&P Date: 12/20/22 Chief Complaint: Tingling and facial numbness and right upper extremity didn't 77-year-old lady with past medical history significant for hypertension, history of diabetes mellitus, presented to the emergency department with complains of tingling and numbness onset was 12/19 around 4 PM. Patient was noted she had facial paresthesia and numbness which moved to right armpit symptoms lasted for about 15 minutes and resolved In the time of presentation in ER patient had another episode which improved by itself. CT head obtained negative for acute intracranial process CT angina denied negative for hemodynamically significant for no Patient did not receive TPA in the ER since patient back at baseline Review of Systems REVIEW OF SYSTEMS: Essentially negative except tingling numbness on face and right upper extremity CONSTITUTIONAL: No fever, no malaise, no fatigue. HEENT: No recent visual problems or hearing problems. Denied any sore throat. CARDIOVASCULAR: No chest pain, orthopnea, PND, no palpitations, no syncope. PULMONARY: No shortness of breath, no cough, no hemoptysis. GASTROINTESTINAL: No diarrhea, no nausea, no vomiting, no abdominal pain. NEUROLOGICAL: No headaches, no weakness, numbness was present upon admission HEMATOLOGICAL: Denies any bleeding or petechiae. GENITOURINARY: Denies any burning micturition, frequency, or urgency. MUSCULOSKELETAL/RHEUMATOLOGICAL: Denies any joint pain, swelling, or any muscle pain. ENDOCRINE: Denies any polyuria or polydipsia. Past Medical History Past Medical History: Diabetes Mellitus, Hypertension History of Any Multi-Drug Resistant Organisms: None Reported Past Surgical History: Cholecystectomy, Hernia Repair, Hysterectomy, Joint Replacement Additional Past Surgical History / Comment(s): right hip replacement Past Psychological History: Anxiety Smoking Status: Never smoker Past Alcohol Use History: Rare Past Drug Use History: None Reported - Past Family History Father Family Medical History: Chest Pain / Angina, Myocardial Infarction ([place]) Mother Family Medical History: CVA/TIA Sister(s) Family Medical History: COPD Medications and Allergies Home Medications Medication Instructions Recorded Confirmed Type ALPRAZolam [Xanax] 0.25 mg PO BID PRN 03/20/16 12/19/22 History Aspirin 81 mg PO HS@2100 03/20/16 12/19/22 History Citalopram Hydrobromide [CeleXA] 40 mg PO HS@2100 03/20/16 12/19/22 History Glimepiride [Amaryl] 4 mg PO BID@1500,2100 03/20/16 12/19/22 History HYDROcodone/APAP 10-325MG [[place] 1 tab PO QID@03,09,15,21 03/20/16 12/19/22 History 10-325] Cholecalciferol [Vitamin D3 (25 50 mcg PO DAILY 12/19/22 12/19/22 History Mcg = 1000 Iu)] Cyanocobalamin [Vitamin B-12] 500 mcg PO DAILY 12/19/22 12/19/22 History Empagliflozin [Jardiance] 25 mg PO DAILY@0900 12/19/22 12/19/22 History Magnesium 250 mg PO DAILY 12/19/22 12/19/22 History Meloxicam [Mobic] 7.5 mg PO BID PRN 12/19/22 12/19/22 History Zolpidem [Ambien] 10 mg PO HS@209912/19/22 12/19/22 History Allergies Allergy/AdvReac Type Severity Reaction Status Date / Time codeine AdvReac Unknown Verified 12/19/22 20:23 Physical Exam Vitals: Vital Signs Temp Pulse Pulse Resp BP BP Pulse Ox 12/20/22 12:39 97.9 F 73 16 120/64 98 12/20/22 08:48 76 16 153/86 96 12/20/22 08:41 97 12/20/22 04:00 97.9 F 74 16 147/87 94 L 12/20/22 00:00 97.9 F 69 16 161/82 98 12/19/22 21:43 71 18 171/81 98 12/19/22 20:14 98.6 F 12/19/22 19:49 60 16 159/86 95 12/19/22 17:06 69 18 195/149 98 Intake and Output 12/19/22 12/20/22 12/20/22 22:59 06:59 14:59 Intake Total 240 240 Balance 240 240 Intake: Oral 240 240 Other: Voiding Method Toilet Toilet # Voids 0 1 Weight 74.843 kg PHYSICAL EXAMINATION: Vital reviewed GENERAL: The patient is alert and oriented x3, not in any acute distress. Well developed HEENT: Pupils are round and equally reacting to light. EOMI. No scleral icterus. No conjunctival pallor. Normocephalic, atraumatic. No pharyngeal erythema. CARDIOVASCULAR: S1 and S2 present. No murmurs, Edema not present PULMONARY: Chest is clear to auscultation, no wheezing or [place] ABDOMEN: Soft, nontender, nondistended, normoactive bowel sounds. No palpable organomegaly. MUSCULOSKELETAL: No joint swelling or deformity. EXTREMITIES: No cyanosis, clubbing, or pedal edema. NEUROLOGICAL: Gross neurological examination did not reveal any focal deficits. Alert and oriented 4 cranial nerve normal no slurred speech noted SKIN: No rashes. Results CBC & Chem 7: 12/19/22 17:16 12/20/22 10:20 Labs: Abnormal Lab Results - Last 24 Hours (Table) 12/19/22 12/19/22 12/19/22 Range/Units 17:14 17:16 17:16 RBC 5.49 H (3.80-5.40) m/uL Hct 47.3 H (34.0-46.0) % APTT 21.5 L (22.0-30.0) sec Sodium (137-145) mmol/L Potassium (3.5-5.1) mmol/L Carbon Dioxide (22-30) mmol/L BUN (7-17) mg/dL Glucose (74-99) mg/dL POC Glucose (mg/dL) 144 H (70-110) mg/dL 12/19/22 12/20/22 12/20/22 Range/Units 17:16 00:00 06:07 RBC (3.80-5.40) m/uL Hct (34.0-46.0) % APTT (22.0-30.0) sec Sodium 134 L (137-145) mmol/L Potassium 5.5 H (3.5-5.1) mmol/L Carbon Dioxide (22-30) mmol/L BUN 20 H (7-17) mg/dL Glucose 156 H (74-99) mg/dL POC Glucose (mg/dL) 223 H 135 H (70-110) mg/dL 12/20/22 12/20/22 Range/Units 10:20 11:38 RBC (3.80-5.40) m/uL Hct (34.0-46.0) % APTT (22.0-30.0) sec Sodium 136 L (137-145) mmol/L Potassium (3.5-5.1) mmol/L Carbon Dioxide 20 L (22-30) mmol/L BUN 18 H (7-17) mg/dL Glucose 166 H (74-99) mg/dL POC Glucose (mg/dL) 166 H (70-110) mg/dL Thrombosis Risk Factor Assmnt - Choose All That Apply Each Factor Represents 1 point: Obesity (BMI >25) Each Risk Factor Represents 3 Points: Age 75 years or older Thrombosis Risk Factor Assessment Total Risk Factor Score: 4 Thrombosis Risk Factor Assessment Level: Moderate Risk Assessment and Plan Assessment: Assessment and plan * Right-sided facial numbness and right arm paresthesia rule out CVA * Diabetes mellitus type 2 * Hypertension * In regards to numbness suspected TIA however patient will need an MRI brain to rule out CVA, continue patient on aspirin and Plavix for 21 days, off for 21 days continue Plavix. Aspirin * Continue patient on Lipitor * Physical therapy occupational therapy and speech therapy consult * Continue neuro checks * Subcu heparin for DVT prophylaxis * For diabetes mellitus continue patient on home regimen and sliding scale insulin * CODE status is full code Time with Patient: Greater than 30
--- NOTE | 2022-12-20 15:47 | US ---
EXAMINATION TYPE: US carotid duplex BILAT DATE OF EXAM: 12/20/2022 COMPARISON: CTA, prev Carotid CLINICAL HISTORY: stroke. Pt states right side facial numbness TECHNIQUE: Carotid duplex ultrasound examination. Indirect Doppler criteria was utilized. FINDINGS: EXAM MEASUREMENTS: RIGHT: Peak Systolic Velocity (PSV) cm/sec ----- Right CCA: 50.5 ----- Right ICA: 119.4 ----- Right ECA: 86.7 ICA/CCA ratio: 2.4 RIGHT: End Diastole cm/sec ----- Right CCA: 10.4 ----- Right ICA: 35.4 ----- Right ECA: 7.6 LEFT: Peak Systolic Velocity (PSV) cm/sec ----- Left CCA: 52.4 ----- Left ICA: 93.1 ----- Left ECA: 149.6 ICA/CCA ratio: 1.8 LEFT: End Diastole cm/sec ----- Left CCA: 9.4 ----- Left ICA: 23.2 ----- Left ECA: 0.0 VERTEBRALS (direction of flow): Right Vertebral: Antegrade Left Vertebral: Antegrade Rhythm: Normal CONDUCTOR YARD NOTES: Heterogeneous plaque bilaterally/ Slightly elevated velocities left ECA, otherwise no significant elevated velocities visualized IMPRESSION: Atherosclerotic plaque with approximately 50-69% proximal right ICA stenosis. Criteria for Assigning % of Stenosis / Diameter reduction (Estimation based on the indirect measurements of the internal carotid artery velocities (ICA PSV). 1. Normal (no stenosis)=ICA PSV < 125 cm/s: ratio < 2.0: ICA EDV<40 cm/s. 2. Less than 50% stenosis=ICA PSV < 125 cm/s: ratio < 2.0: ICA EDV<40 cm/s. 3. 50 to 69% stenosis=ICA PSV of 125 to 230 cm/s: ration 2.0 ? 4.0: ICA EDV 40-100 cm/s. 4. Greater than 70% stenosis to near occlusion= ICA PSV > 230 cm/s: ratio > 4.0: ICA EDV > 100 cm/s. 5. Near occlusion= ICA PSV velocities may be low or undetectable: variable ratio and ICA EDV. 6. Total occlusion=unable to detect flow.
[2022-12-20 16:01] LABS: Chol/HDL Ratio 3.31 Ratio; LDL Cholesterol,Calculated 90.6 mg/dL (0.0-131.0)
[2022-12-20 16:37] LABS: Glucose,Whole Blood 206 mg/dL (70-110)
[2022-12-20] MEDS: GLIMEPIRIDE 4 MG TAB PO SCH ×2 (16:41→20:31)
[2022-12-20] MEDS: INSULIN ASPART (NovoLOG) 100 UNIT/ML VIAL SQ SCH ×2 (16:41→20:32)
[2022-12-20] MEDS: HEPARIN SODIUM,PORCINE/PF 5,000 UNIT/0.5 ML SYRINGE SQ SCH (16:41)
--- NOTE | 2022-12-20 18:05 | CA ---
Transthoracic Echo Report Name: Harini Martin Age: 77 Gender: F : 1945 Exam Date: 12/20/2022 13:24 Exam Location: [facility] Ht (in): 61 Wt (lb): 165 Ordering Physician: Dustin Castro MD Attending/Referring Phys: [employer] Worker Karyn Thomas RDCS Procedure CPT: Indications: stroke Cardiac Hx: Technical Quality: Fair Contrast 1: Total Dose (mL): Contrast 2: Total Dose (mL): MEASUREMENTS (Male / Female) Normal Values 2D ECHO LV Diastolic Diameter PLAX 4.8 cm 4.2 - 5.9 / 3.9 - 5.3 cm LV Systolic Diameter PLAX 3.5 cm IVS Diastolic Thickness 1.0 cm 0.6 - 1.0 / 0.6 - 0.9 cm LVPW Diastolic Thickness 1.4 cm 0.6 - 1.0 / 0.6 - 0.9 cm LV Relative Wall Thickness 0.5 RV Internal Dim ED PLAX 2.7 cm LA Volume 52.5 cm??? 18 - 58 / 22 - 52 cm??? M-MODE Aortic Root Diameter MM 2.6 cm AV Cusp Separation MM 1.5 cm DOPPLER AV Peak Velocity 138.4 cm/s AV Peak Gradient 7.7 mmHg LVOT Peak Velocity 117.5 cm/s LVOT Peak Gradient 5.5 mmHg MV Area PHT 4.6 cm??? Mitral E Point Velocity 67.5 cm/s Mitral A Point Velocity 79.9 cm/s Mitral E to A Ratio 0.8 MV Deceleration Time 166.3 ms FINDINGS Left Ventricle Moderately increased posterior wall and septal thickness. Left ventricular ejection fraction is estimated at 55-60 %. Right Ventricle Normal right ventricular size and function. Right ventricular systolic pressure within normal limits. Right Atrium Normal right atrial size. Left Atrium Left atrial size at the upper limits of normal. Mitral Valve Mild mitral regurgitation. Aortic Valve Trileaflet aortic valve. No aortic regurgitation. No aortic stenosis. Tricuspid Valve Structurally normal tricuspid valve. No tricuspid regurgitation. Pulmonic Valve Structurally normal pulmonic valve. No pulmonic regurgitation. Pericardium No pericardial or pleural effusion. Aorta Normal size aortic root and proximal ascending aorta. CONCLUSIONS LVH with preserved systolic function Previewed by: Dr. Miguel Colvin MD (Electronically Signed) Final Date: 20 December 2022 18:04
[2022-12-20 20:25] LABS: Glucose,Whole Blood 194 mg/dL (70-110)
[2022-12-20] MEDS: CITALOPRAM HYDROBROMIDE 20 MG TAB PO SCH (20:30)
[2022-12-20] MEDS: ZOLPIDEM 5 MG TAB PO SCH (20:31)
[2022-12-20] MEDS ORDERED: ASPIRIN 81 MG PO SCH (21:00)
[2022-12-20] MEDS ORDERED: HEPARIN SODIUM,PORCINE/PF 5,000 UNIT/0.5 ML SYRINGE SQ SCH (21:00)
[2022-12-20 22:51] VITALS: RESP 16
[2022-12-21] MEDS: HEPARIN SODIUM,PORCINE/PF 5,000 UNIT/0.5 ML SYRINGE SQ SCH ×2 (01:20→08:20)
[2022-12-21] MEDS: HYDROcodone/APAP 10-325MG 1 EACH TAB PO SCH ×2 (05:57→08:20)
[2022-12-21 05:58] LABS: Glucose,Whole Blood 155 mg/dL (70-110)
[2022-12-21] MEDS: SODIUM CHLORIDE 0.9% 1,000 ML IV SCH (05:59)
[2022-12-21 06:21] VITALS: TEMP 97.8
[2022-12-21] MEDS: INSULIN ASPART (NovoLOG) 100 UNIT/ML VIAL SQ SCH ×2 (06:59→12:23)
[2022-12-21] MEDS: ATORVASTATIN 40 MG TAB PO SCH (08:20)
[2022-12-21] MEDS: CHOLECALCIFEROL 25 MCG (1000 IU) TABLET PO SCH (08:20)
[2022-12-21] MEDS: CYANOCOBALAMIN 500 MCG TAB PO SCH (08:20)
[2022-12-21] MEDS: CLOPIDOGREL 75 MG TAB PO SCH (08:20)
[2022-12-21] MEDS: DAPAGLIFLOZIN PROPANEDIOL 10 MG TABLET PO SCH (08:20)
[2022-12-21] MEDS: MAGNESIUM OXIDE 400 MG TAB PO SCH (08:20)
[2022-12-21 11:25] LABS: HCT 43.8 % (34.0-46.0); HGB 14.2 gm/dL (11.4-16.0); MCH 28.2 pg (25.0-35.0); MCHC 32.4 g/dL (31.0-37.0); MCV 86.8 fL (80.0-100.0); Mean Platelet Volume 7.4; Platelet Count 186 k/uL (150-450); RBC 5.05 m/uL (3.80-5.40); RDW 13.7 % (11.5-15.5); WBC 5.1 k/uL (3.8-10.6)
[2022-12-21 11:32] LABS: Glucose,Whole Blood 228 mg/dL (70-110)
--- NOTE | 2022-12-21 11:53 | P.GSCN ---
History of Present Illness Consult date: 12/21/22 Reason for Consult: Carotid stenosis Requesting physician: Dustin Castro History of present illness: This is a pleasant 77-year-old female who presented to the emergency department yesterday with complaints of right upper extremity numbness and tingling in her right hand and up to her elbow, with numbness and tingling on the right side of her face. She has a past medical history of coronary artery disease, diabetes m ellitus and hypertension. She states while she was in the emergency room around 7:00 last night she started getting the facial numbness again, followed with some slurred speech and numbness and tingling in her right hand. She denied any weakness in her lower extremities. Denies any visual changes. No previous history or knowledge of carotid disease. She states currently she has no focal deficits. She denies any shortness of breath, chest pain, abdominal pain, nausea or vomiting. She is denies any fevers, chills or body aches. She denies any previous history of atrial fibrillation. States that she's had a cardiac cath but no stents placed. She has been on a low-dose 81 mg aspirin daily. She was seen by neurology and started on Plavix 75 mg as well as a atorvastatin 40 mg daily. Vascular surgery was consulted for right-sided ICA stenosis. Initial workup included Brain CT which reported atrophy. No acute intracranial process. Follow-up MRI can be performed as clinically indicated. CT angiogram head and neck reported no flow limiting stenosis bilateral carotid bifurcations. More medial location for internal carotid arteries below the skull base. Normal [place] [facility] [place]. Carotid duplex reports right ICA PSV 119, ICA/CCA ratio 2.4. Left ICA PSV 93, ICA/CCA ratio 1.8. Report states arthrosclerotic plaque with approximately 50- 69% proximal right ICA stenosis Echocardiogram EF 55-60% mild mitral regurgitation Review of Systems A 14 point review systems was completed all pertinent positives and negatives as stated in the HPI. Past Medical History Past Medical History: Diabetes Mellitus, Hypertension History of Any Multi-Drug Resistant Organisms: None Reported Past Surgical History: Cholecystectomy, Hernia Repair, Hysterectomy, Joint Replacement Additional Past Surgical History / Comment(s): right hip replacement Past Psychological History: Anxiety Smoking Status: Never smoker Past Alcohol Use History: Rare Past Drug Use History: None Reported - Past Family History Father Family Medical History: Chest Pain / Angina, Myocardial Infarction (IA) Mother Family Medical History: CVA/TIA Sister(s) Family Medical History: COPD Medications and Allergies Home Medications Medication Instructions Recorded Confirmed Type ALPRAZolam [Xanax] 0.25 mg PO BID PRN 03/20/16 12/19/22 History Citalopram Hydrobromide [CeleXA] 40 mg PO HS@2100 03/20/16 12/19/22 History Glimepiride [Amaryl] 4 mg PO BID@1500,2100 03/20/16 12/19/22 History HYDROcodone/APAP 10-325MG [[place] 1 tab PO QID@03,09,15,21 03/20/16 12/19/22 History 10-325] Cholecalciferol [Vitamin D3 (25 50 mcg PO DAILY 12/19/22 12/19/22 History Mcg = 1000 Iu)] Cyanocobalamin [Vitamin B-12] 500 mcg PO DAILY 12/19/22 12/19/22 History Empagliflozin [Jardiance] 25 mg PO DAILY@0900 12/19/22 12/19/22 History Magnesium 250 mg PO DAILY 12/19/22 12/19/22 History Meloxicam [Mobic] 7.5 mg PO BID PRN 12/19/22 12/19/22 History Zolpidem [Ambien] 10 mg PO HS@2100 12/19/22 12/19/22 History Aspirin 81 mg PO HS 20 Days #20 tab 12/21/22 Rx Atorvastatin [Lipitor] 40 mg PO DAILY 30 Days #30 tab 12/21/22 Rx Clopidogrel [Plavix] 75 mg PO DAILY 30 Days #30 tab 12/21/22 Rx Allergies Allergy/AdvReac Type Severity Reaction Status Date / Time codeine AdvReac Unknown Verified 12/19/22 20:23 Surgical - Exam Vital Signs Pulse Resp BP Pulse Ox 69 18 195/149 98 12/19/22 17:06 12/19/22 17:06 12/19/22 17:06 12/19/22 17:06 General appearance: The patient is alert, oriented, appears in no acute distress. HET: Head is normocephalic and atraumatic. Pupils are equal and reactive. Neck: Supple without lymphadenopathy. Trachea midline. No audible carotid bruit. Heart: Regular. Lungs: Equal expansion, normal respiratory effort. Abdomen: Soft, nontender, nondistended. Extremities: Normal skin color and turgor. No cyanosis, rash, ulceration, clubbing, or edema. Radial and pedal pulses are 2/4 bilaterally. Neurological: No focal deficits. Strength and sensation are grossly intact. Results - Labs 12/21/22 10:17 12/21/22 10:17 Abnormal Lab Results - Last 24 Hours (Table) 12/20/22 12/20/22 12/20/22 Range/Units 08:01 10:20 11:38 Sodium 136 L (137-145) mmol/L Carbon Dioxide 20 L (22-30) mmol/L BUN 18 H (7-17) mg/dL Glucose 166 H (74-99) mg/dL POC Glucose (mg/dL) 166 H (70-110) mg/dL Triglycerides 151.00 H (0.00-149.00) mg/dL 12/20/22 12/20/22 12/21/22 Range/Units 16:34 20:24 05:57 Sodium (137-145) mmol/L Carbon Dioxide (22-30) mmol/L BUN (7-17) mg/dL Glucose (74-99) mg/dL POC Glucose (mg/dL) 206 H 194 H 155 H (70-110) mg/dL Triglycerides (0.00-149.00) mg/dL 12/21/22 Range/Units 11:30 Sodium (137-145) mmol/L Carbon Dioxide (22-30) mmol/L BUN (7-17) mg/dL Glucose (74-99) mg/dL POC Glucose (mg/dL) 228 H (70-110) mg/dL Triglycerides (0.00-149.00) mg/dL Diabetes panel 12/20/22 12/20/22 Range/Units 08:01 10:20 Sodium 136 L (137-145) mmol/L Potassium 5.1 (3.5-5.1) mmol/L Chloride 105 (98-107) mmol/L Carbon Dioxide 20 L (22-30) mmol/L BUN 18 H (7-17) mg/dL Creatinine 0.63 (0.52-1.04) mg/dL Glucose 166 H (74-99) mg/dL Calcium 9.1 (8.4-10.2) mg/dL Triglycerides 151.00 H (0.00-149.00) mg/dL HDL Cholesterol 52.20 (40.00-60.00) mg/dL Calcium panel 12/20/22 Range/Units 10:20 Calcium 9.1 (8.4-10.2) mg/dL Pituitary panel 12/20/22 Range/Units 10:20 Sodium 136 L (137-145) mmol/L Potassium 5.1 (3.5-5.1) mmol/L Chloride 105 (98-107) mmol/L Carbon Dioxide 20 L (22-30) mmol/L BUN 18 H (7-17) mg/dL Creatinine 0.63 (0.52-1.04) mg/dL Glucose 166 H (74-99) mg/dL Calcium 9.1 (8.4-10.2) mg/dL Adrenal panel 12/20/22 Range/Units 10:20 Sodium 136 L (137-145) mmol/L Potassium 5.1 (3.5-5.1) mmol/L Chloride 105 (98-107) mmol/L Carbon Dioxide 20 L (22-30) mmol/L BUN 18 H (7-17) mg/dL Creatinine 0.63 (0.52-1.04) mg/dL Glucose 166 H (74-99) mg/dL Calcium 9.1 (8.4-10.2) mg/dL Assessment and Plan Assessment: 1. TIA with right-sided facial numbness and tingling as well as right upper ex tremity numbness and tingling 2. Right ICA stenosis 50-69% per carotid duplex, with discordant findings of no focal stenosis per CT angiogram 2. Diabetes mellitus 3. Hypertension Plan: 1. Continue with medical therapy aspirin 81 mg, Plavix and statin. 2. Apparently patient is declining MRI of the brain due to claustrophobia 3. PT/OT 4. CT angiogram head and neck as well as carotid duplex imaging reviewed by Dr. Barber, patient has less than 50% stenosis bilaterally. No indications for any surgical intervention at this time. Recommend outpatient follow-up with vascular surgery 5. Continue with recommendations from neurology Thank you for this consultation. Patient is cleared for discharge from vascular surgery. The impression and plan of care has been dictated as directed. Dr. Barber I performed a history and examination of this patient, discussed the same with the dictator. I agree with the dictator's note ,documented as a scribe. Any additional findings or plans will be noted.
[2022-12-21 11:55] LABS: African American GFR (CKD) >90 (>60 ml/min/1.73 sqM); Anion Gap 7 mmol/L; Blood Urea Nitrogen 18 mg/dL (7-17); Calcium 9.1 mg/dL (8.4-10.2); Carbon Dioxide 23 mmol/L (22-30); Chloride 104 mmol/L (98-107); Glucose 188 mg/dL (74-99); Non-African American GFR(CKD) 85 (>60 ml/min/1.73 sqM); Potassium 4.9 mmol/L (3.5-5.1); Sodium 134 mmol/L (137-145)
[2022-12-21 12:24] VITALS: BP 128/82; PULSE 70
--- NOTE | 2022-12-21 13:38 | P.PN ---
Subjective Progress Note Date: 12/21/22 Patient seen at bedside and denies any further neurological deficit. She continues to be at baseline since she's been in our facility. Objective - Vital Signs Vital signs: Vital Signs Temp 97.8 F 12/21/22 08:18 Pulse 70 12/21/22 12:23 Resp 16 12/21/22 12:23 BP 128/82 12/21/22 12:23 Pulse Ox 95 12/21/22 12:23 FiO2 Intake & Output 12/20/22 12/21/22 12/21/22 18:59 06:59 18:59 Intake Total 1280 580 Balance 1280 580 Intake: Oral 1280 580 Other: Voiding Method Toilet Toilet Toilet # Voids 1 1 2 - Exam GENERAL: The patient is lying in bed and is not in acute distress. NEUROLOGICAL: Higher mental function: The patient is awake, alert, oriented to self, place and time. Patient is following commands. No aphasia and no neglect. Cranial nerves: The pupils are round, equal and reactive to light and accommodation. Visual [place] are full to confrontation throughout. Extraocular movement is intact no nystagmus is noted. Facial sensation is normal to touch throughout. The facial strength is normal throughout. Hearing is normal bilaterally to hand rub. Tongue is midline and moved [id number] without any difficulty. No dysarthria is noted. Shoulder shrug is normal bilaterally. Motor: The strength is 5 over 5 throughout. Normal tone and bulk. Cerebellum: Normal finger to nose bilaterally. Sensation: Sensation is normal to touch throughout. Reflexes (right/left): 1+ throughout. Plantars are downgoing bilaterally. Some of the workup during his hospital visit consisted of: Sodium is 134, potassium is 5.5, initial POC glucose is 144. The panel is a triglyceride 151, cholesterol is 173, LDL is 90 and HDL is a 52. CT of the head is reported as atrophy. No acute intracranial process. Follow- up MRI can be performed is currently indicated. Personally reviewed the CT and there is no acute subacute ischemia. CT angiography of the head and neck was reported as no flow-limiting stenosis bilateral carotid bifurcation. More medial location for internal carotid artery below the skull base. Normal [facility] [place] [facility] [place]. Carotid duplex was reported as atherosclerotic plaque with approximately 50-69% of proximal right ICA stenosis. The echo was reported as left ventricle with preserved systolic function. Left atrial size and normal upper limits of normal. - Labs CBC & Chem 7: 12/21/22 10:17 12/21/22 10:17 Labs: Abnormal Lab Results - Last 24 Hours (Table) 12/20/22 12/20/22 12/20/22 Range/Units 08:01 16:34 20:24 Sodium (137-145) mmol/L BUN (7-17) mg/dL Glucose (74-99) mg/dL POC Glucose (mg/dL) 206 H 194 H (70-110) mg/dL Triglycerides 151.00 H (0.00-149.00) mg/dL 12/21/22 12/21/22 12/21/22 Range/Units 05:57 10:17 11:30 Sodium 134 L (137-145) mmol/L BUN 18 H (7-17) mg/dL Glucose 188 H (74-99) mg/dL POC Glucose (mg/dL) 155 H 228 H (70-110) mg/dL Triglycerides (0.00-149.00) mg/dL Assessment and Plan Assessment: This is a 77-year-old woman who presented that because of the numbness then later a prickling sensation over the face and upper extremity and the first episode lasted within 50 minutes and the second lasted within 5 minutes. Transischemic attack. Right ICA stenosis of 50-69% on carotid duplex with discordant findings of no focal stenosis per CT angiogram Diabetes mellitus and had that for 10 years Hypertension Plan: In addition to the aspirin she started on Plavix 75 mg daily. I agree with the with a dual antiplatelets for 21 days and after 21 stop aspirin but continue Plavix indefinitely. She is on Lipitor 40 mg daily for secondary stroke prophylaxis Patient declined MRI this is claustrophobic. Consulted vascular surgery team for her right ICA stenosis. Right ICA stenosis of 50-69% on carotid duplex with discordant findings of no focal stenosis per CT angiogram. Dr. Barber reviewed images and felt <50% stenosis bilaterally. PT OT and [employer] are consulted Continue neuro checks On cardiac monitoring We'll defer the rest of the medical and has been to the primary team For DVT prophylaxis On subcu heparin 5000 units every 8 hours The plan was discussed with the patient. There is no additional neurological work-up. Time with Patient: Less than 30
--- NOTE | 2022-12-21 13:39 | P.DS ---
Providers Date of admission: 12/19/22 20:07 Expected date of discharge: 12/21/22 Attending physician: Vangie Matta Consults: 12/19/22 20:04 Consult Physician Routine Consulting Provider: Dustin Castro Consult Reason/Comments: TIA Do you want consulting provider notified?: Yes 12/21/22 10:05 Consult Physician Routine Consulting Provider: Ana Barber Consult Reason/Comments: right ica stenosis. Do you want consulting provider notified?: Yes Primary care physician: [facility] Course: Chief Complaint: Tingling and facial numbness and right upper extremity didn't Hospital course : 77-year-old lady with past medical history significant for hypertension, history of diabetes mellitus, presented to the emergency department with complains of tingling and numbness onset was 4/10 around 4 PM. Patient was noted she had facial paresthesia and numbness which moved to right armpit symptoms lasted for about 15 minutes and resolved In the time of presentation in ER patient had another episode which improved by itself. CT head obtained negative for acute intracranial process CT angina denied negative for hemodynamically significant for no Patient did not receive TPA in the ER since patient back at baseline Patient was seen by neurology during the hospitalization, carotid ultrasound completed which showed 50-69% right ICA stenosis Patient was seen by vascular surgery for carotid stenosis no intervention recommended medical manage Ejection fraction on echocardiogram was 55% Patient could not complete MRI secondary to claustrophobia Patient treated with aspirin and Plavix for transient ischemic attack Patient to take aspirin for total 21 days prescription provided PHYSICAL EXAMINATION: Vital reviewed GENERAL: The patient is alert and oriented x3, not in any acute distress. Well developed HEENT: Pupils are round and equally reacting to light. EOMI. No scleral icterus. No conjunctival pallor. Normocephalic, atraumatic. No pharyngeal erythema. CARDIOVASCULAR: S1 and S2 present. No murmurs, Edema not present PULMONARY: Chest is clear to auscultation, no wheezing or Ron[place] ABDOMEN: Soft, nontender, nondistended, normoactive bowel sounds. No palpable organomegaly. MUSCULOSKELETAL: No joint swelling or deformity. EXTREMITIES: No cyanosis, clubbing, or pedal edema. NEUROLOGICAL: Gross neurological examination did not reveal any focal deficits. SKIN: No rashes. Assessment and plan * Right-sided facial numbness and right arm paresthesia resolved within 24 hours likely secondary to transient ischemic attack * Carotid artery stenosis right ICA * Diabetes mellitus type 2 * Hypertension * In regards to numbness suspected TIA however patient will need an MRI brain to rule out CVA, continue patient on aspirin and Plavix for 21 days, continue Plavix thereafter. * Continue patient on Lipitor * Physical therapy occupational therapy and speech therapy consulted * Vascular surgery consulted a pressure recommendations * For diabetes mellitus continue home regimen upon discharge Patient Condition at Discharge: Fair Plan - Discharge Summary Discharge Rx Participant: No New Discharge Prescriptions: New Clopidogrel [Plavix] 75 mg PO DAILY 30 Days #30 tab Aspirin 81 mg PO HS 20 Days #20 tab Atorvastatin [Lipitor] 40 mg PO DAILY 30 Days #30 tab Continue Glimepiride [Amaryl] 4 mg PO BID@1500,2100 HYDROcodone/APAP 10-325MG [[place] 10-325] 1 tab PO QID@03,,, ALPRAZolam [Xanax] 0.25 mg PO BID PRN PRN Reason: Anxiety Citalopram Hydrobromide [CeleXA] 40 mg PO HS@2100 Zolpidem [Ambien] 10 mg PO HS@2100 Meloxicam [Mobic] 7.5 mg PO BID PRN PRN Reason: Pain Cyanocobalamin [Vitamin B-12] 500 mcg PO DAILY Cholecalciferol [Vitamin D3 (25 Mcg = 1000 Iu)] 50 mcg PO DAILY Empagliflozin [Jardiance] 25 mg PO DAILY@0900 Magnesium 250 mg PO DAILY Discontinued Aspirin 81 mg PO HS@2100 Discharge Medication List ALPRAZolam [Xanax] 0.25 mg PO BID PRN 03/20/16 [History] Citalopram Hydrobromide [CeleXA] 40 mg PO HS@2100 03/20/16 [History] Glimepiride [Amaryl] 4 mg PO BID@1500,2100 03/20/16 [History] HYDROcodone/APAP 10-325MG [[place] 10-325] 1 tab PO QID@,,,21 03/20/16 [History] Cholecalciferol [Vitamin D3 (25 Mcg = 1000 Iu)] 50 mcg PO DAILY 12/19/22 [History] Cyanocobalamin [Vitamin B-12] 500 mcg PO DAILY 12/19/22 [History] Empagliflozin [Jardiance] 25 mg PO DAILY@0900 12/19/22 [History] Magnesium 250 mg PO DAILY 12/19/22 [History] Meloxicam [Mobic] 7.5 mg PO BID PRN 12/19/22 [History] Zolpidem [Ambien] 10 mg PO HS@2100 12/19/22 [History] Aspirin 81 mg PO HS 20 Days #20 tab 12/21/22 [Rx] Atorvastatin [Lipitor] 40 mg PO DAILY 30 Days #30 tab 12/21/22 [Rx] Clopidogrel [Plavix] 75 mg PO DAILY 30 Days #30 tab 12/21/22 [Rx] Follow up Appointment(s)/Referral(s): [facility] [NON-STAFF] - Dustin Castro MD [STAFF PHYSICIAN] - 1 Week Bobby Yepez DO [Primary Care Provider] - 1-2 days Activity/Diet/Wound Care/Special Instructions: Continue to take a low-salt diet upon discharge Continue aspirin for total 20 days in combination with Plavix, thereafter just take Plavix Follow-up with primary care physician and neurology Discharge/Stand Alone Forms: Who Do I Call? Discharge Disposition: HOME SELF-CARE
== END 2022-12-21 15:27 | disposition home or self-care (01) ==
LOC: EC 17:04 → 3SCARD 20:07 → INTOOBSV 20:07 → 3SCARD 21:03
PROVIDERS: ADMIT Internal Medicine; ATTEND Internal Medicine
DX: R20.0 Anesthesia of skin (principal); R20.2 Paresthesia of skin; I65.21 Occlusion and stenosis of right carotid artery; E11.9 Type 2 diabetes mellitus without complications; I25.10 Atherosclerotic heart disease of native coronary artery without angina pectoris; I10 Essential (primary) hypertension; F41.9 Anxiety disorder, unspecified; R47.01 Aphasia; R47.81 Slurred speech; Z90.49 Acquired absence of other specified parts of digestive tract; Z90.710 Acquired absence of both cervix and uterus; Z96.641 Presence of right artificial hip joint; Z82.49 Family history of ischemic heart disease and other diseases of the circulatory system; Z83.6 Family history of other diseases of the respiratory system; Z79.84 Long term (current) use of oral hypoglycemic drugs; Z79.82 Long term (current) use of aspirin; Z79.899 Other long term (current) drug therapy; Z88.5 Allergy status to narcotic agent
CPT/HCPCS: 96360; 96361 ×2; 99291; 36415; 94760; 93005; 93306; 97162; 97166; 92523; 80061; 80053; 80048 ×2; 82550; 84484; 85025; 85027; 85610; 85730; 83036; 71046; 93880; 70496; 70450; 70498; G0378 ×2; Q9967; J1644 ×2

== ENCOUNTER 2023-05-19 13:42 | Inpatient (IN) | payer MEDICARE ==
[2023-05-19 14:07] LABS: Glucose,Whole Blood 145 mg/dL (70-110)
[2023-05-19] MEDS ORDERED: SODIUM CHLORIDE 0.9% 500 ML 500 ML IV STA (14:12)
--- NOTE | 2023-05-19 14:17 | ED ---
General Adult HPI - General Chief complaint: Neuro Symptoms/Deficit Stated complaint: R side weakness Time Seen by Provider: 05/19/23 13:45 Source: patient, RN notes reviewed, old records reviewed Mode of arrival: wheelchair Limitations: no limitations - History of Present Illness Initial comments: This is a 77-year-old female who presents emergency Department stating that at 2 AM she was normal but when she woke up 8:00 she had weakness in her right leg right arm and was having difficulty speaking. Patient states she was unable to hold her cane and she dropped milk that was in her right hand and she also was dragging her right foot for a while. Patient states currently all symptoms have gone away. Patient denies chest pain palpitations difficulty breathing shortness breath per patient states she does have a history of TIA. Patient denies any headache patient denies any abdominal pain patient denies nausea vomiting diarrhea. Patient denies any recent fever chills or cough - Related Data Home Medications Medication Instructions Recorded Confirmed ALPRAZolam [Xanax] 0.25 mg PO BID PRN 03/20/16 12/19/22 Citalopram Hydrobromide [CeleXA] 40 mg PO HS@2100 03/20/16 12/19/22 Glimepiride [Amaryl] 4 mg PO BID@1500,209903/20/16 12/19/22 HYDROcodone/APAP 10-325MG [Sutton 1 tab PO QID@03,09,15,21 03/20/16 12/19/22 10-325] Cholecalciferol [Vitamin D3 (25 50 mcg PO DAILY 12/19/22 12/19/22 Mcg = 1000 Iu)] Cyanocobalamin [Vitamin B-12] 500 mcg PO DAILY 12/19/22 12/19/22 Empagliflozin [Jardiance] 25 mg PO DAILY@0900 12/19/22 12/19/22 Magnesium 250 mg PO DAILY 12/19/22 12/19/22 Meloxicam [Mobic] 7.5 mg PO BID PRN 12/19/22 12/19/22 Zolpidem [Ambien] 10 mg PO HS@2100 12/19/22 12/19/22 Previous Rx's Medication Instructions Recorded Aspirin 81 mg PO HS 20 Days #20 tab 12/21/22 Atorvastatin [Lipitor] 40 mg PO DAILY 30 Days #30 tab 12/21/22 Clopidogrel [Plavix] 75 mg PO DAILY 30 Days #30 tab 12/21/22 Allergies Allergy/AdvReac Type Severity Reaction Status Date / Time codeine AdvReac Unknown Verified 05/19/23 13:47 Review of Systems ROS Statement: Those systems with pertinent positive or pertinent negative responses have been documented in the HPI. ROS Other: All systems not noted in ROS Statement are negative. Past Medical History Past Medical History: CVA/TIA, Diabetes Mellitus, Hypertension History of Any Multi-Drug Resistant Organisms: None Reported Past Surgical History: Cholecystectomy, Hernia Repair, Hysterectomy, Joint Replacement Additional Past Surgical History / Comment(s): right hip replacement Past Psychological History: Anxiety Smoking Status: Never smoker Past Alcohol Use History: Rare Past Drug Use History: None Reported - Past Family History Father Family Medical History: Chest Pain / Angina, Myocardial Infarction ([place]) Mother Family Medical History: CVA/TIA Sister(s) Family Medical History: COPD General Exam - General Exam Comments Initial Comments: GENERAL: Patient is well-developed and well-nourished. Patient is nontoxic and well- hydrated and is in no acute distress. ENT: Neck is soft and supple. No significant lymphadenopathy is noted. Oropharynx is clear. Moist mucous membranes. Neck has full range of motion without eliciting any pain. EYES: The sclera were anicteric and conjunctiva were pink and moist. Extraocular movements were intact and pupils were equal round and reactive to light. Eyelids were unremarkable. PULMONARY: Unlabored respirations. Good breath sounds bilaterally. No audible rales rhonchi or wheezing was noted. CARDIOVASCULAR: There is a regular rate and rhythm without any murmurs gallops or rubs. ABDOMEN: Soft and nontender with normal bowel sounds. SKIN: Skin is clear with no lesions or rashes and otherwise unremarkable. NEUROLOGIC: Patient is alert and oriented x3. Cranial nerves II through XII are grossly intact. Motor and sensory are also intact. Normal speech, volume and content. Symmetrical smile. Finger nose testing is normal bilaterally. Patient has no drift at this time. Patient's NIH is 0 MUSCULOSKELETAL: Normal extremities with adequate strength and full range of motion. LYMPHATICS: No significant lymphadenopathy is noted PSYCHIATRIC: Normal psychiatric evaluation. Limitations: no limitations Course Vital Signs 05/19/23 05/19/23 13:44 16:12 Temperature 98.4 F Pulse Rate 66 70 Respiratory 20 18 Rate Blood Pressure 175/55 118/68 O2 Sat by Pulse 999 H 98 Oximetry Medical Decision Making - Medical Decision Making EKG is interpreted by myself. EKG shows a sinus rhythm at 65 bpm OK interval 167 76 QT interval 3692 QTC is 381. Patient's EKG shows no ST segment elevation or depression. Was pt. sent in by a medical professional or institution (ROBERTO CARLOS Pham, MEMBER SERVICES REPRESENTATIVE, urgent care, hospital, or residential...) When possible be specific @ -Patient was sent in by her neurologist Did you speak to anyone other than the patient for history (EMS, parent, family, police, friend...)? What history was obtained from this source @ -No Did you review nursing and triage notes (agree or disagree)? Why? @ -I reviewed and agree with nursing and triage notes Were old charts reviewed (outside hosp., previous admission, EMS record, old EKG, old radiological studies, urgent care reports/EKG's, residential records)? Report findings @ -I reviewed prior lab work in prior charts in prior radiological studies in this patient. Differential Diagnosis (chest pain, altered mental status, abdominal pain women, abdominal pain men, vaginal bleeding, weakness, fever, dyspnea, syncope, headache, dizziness, GI bleed, back pain, seizure, CVA, palpatations, mental health, musculoskeletal)? @ -Differential CVA Ischemic stroke, hemorrhagic stroke, brain tumor, atypical migraine, Wernicke's encephalopathy, seizure, multiple sclerosis, meningitis, encephalitis, hypoglycemia, Guillain-Ferriera, electrolytes disturbance, myasthenia gravis.... This is not meant to be an all-inclusive list EKG interpreted by me (3pts min.). @ -As above X-rays interpreted by me (1pt min.). @ -Chest x-ray shows no acute abnormality CT interpreted by me (1pt min.). @ -CT brain and CTA head and neck showed no acute abnormality to explain the patient's symptoms What testing was considered but not performed or refused? (CT, X-rays, U/S, labs)? Why? @ -None What meds were considered but not given or refused? Why? @ -None Did you discuss the management of the patient with other professionals (beckie tadeo iROBERTO CARLOS Kidd, MEMBER SERVICES REPRESENTATIVE, lab, RT, psych nurse, social and human services assistant, automotive parts clerk, teacher, licensed loan officer assistant, returned case inspector)? Give summary @ -I spoke with the [facility] hospitalist and they agreed to admit the patient Was smoking cessation discussed for >3mins.? @ -No Was critical care preformed (if so, how long)? @ -No Were there social determinants of health that impacted care today? How? ( Homelessness, low income, unemployed, alcoholism, drug addiction, transportation, low edu. Level, literacy, decrease access to med. care, fci, rehab)? @ -No Was there de-escalation of care discussed even if they declined (Discuss DNR or withdrawal of care, Hospice)? DNR status @ -No What co-morbidities impacted this encounter? (DM, HTN, Smoking, COPD, CAD, Cancer, CVA, ARF, Chemo, Hep., AIDS, mental health diagnosis, sleep apnea, morbid obesity)? @ -None Was patient admitted / discharged? Hospital course, mention meds given and route, prescriptions, significant lab abnormalities, going to OR and other pertinent info. @ -Patient's symptoms have resolved prior to my initial interview and she remained resolved throughout her ED course. [facility] agreed to admit the patient I admitted the patient I wrote admitting orders I consult the neurology Undiagnosed new problem with uncertain prognosis? @ -No Drug Therapy requiring intensive monitoring for toxicity (Heparin, Nitro, Insulin, Cardizem)? @ -No Were any procedures done? @ -No Diagnosis/symptom? @ -TIA Acute, or Chronic, or Acute on Chronic? @ -Acute Uncomplicated (without systemic symptoms) or Complicated (systemic symptoms)? @ -Complicated Side effects of treatment? @ -No Exacerbation, Progression, or Severe Exacerbation? @ -No Poses a threat to life or bodily function? How? (Chest pain, USA, [place], pneumonia, PE, COPD, DKA, ARF, appy, cholecystitis, CVA, Diverticulitis, Homicidal, Suicidal, threat to staff... and all critical care pts) @ -Yes this could lead to a stroke and significant morbidity or mortality - Lab Data Result diagrams: 05/19/23 14:21 05/19/23 14:21 Lab Results 05/19/23 05/19/23 05/19/23 Range/Units 14:05 14:21 14:21 WBC 9.6 (3.8-10.6) k/uL RBC 4.79 (3.80-5.40) m/uL Hgb 14.2 (11.4-16.0) gm/dL Hct 42.3 (34.0-46.0) % MCV 88.2 (80.0-100.0) fL MCH 29.7 (25.0-35.0) pg MCHC 33.6 (31.0-37.0) g/dL RDW 13.0 (11.5-15.5) % Plt Count 241 (150-450) k/uL MPV 7.3 Neutrophils % 76 % Lymphocytes % 16 % Monocytes % 6 % Eosinophils % 1 % Basophils % 0 % Neutrophils # 7.4 (1.3-7.7) k/uL Lymphocytes # 1.5 (1.0-4.8) k/uL Monocytes # 0.6 (0-1.0) k/uL Eosinophils # 0.1 (0-0.7) k/uL Basophils # 0.0 (0-0.2) k/uL PT 10.4 (9.0-12.0) sec INR 1.0 (<1.2) APTT 23.2 (22.0-30.0) sec Sodium (137-145) mmol/L Potassium (3.5-5.1) mmol/L Chloride (98-107) mmol/L Carbon Dioxide (22-30) mmol/L Anion Gap mmol/L BUN (7-17) mg/dL Creatinine (0.52-1.04) mg/dL Est GFR (CKD-EPI)AfAm (>60 ml/min/1.73 sqM) Est GFR (CKD-EPI)NonAf (>60 ml/min/1.73 sqM) Glucose (74-99) mg/dL POC Glucose (mg/dL) 145 H (70-110) mg/dL POC Glu Co Founder And Ceo ID Becky Oviedo Calcium (8.4-10.2) mg/dL Total Bilirubin (0.2-1.3) mg/dL AST (14-36) U/L ALT (4-34) U/L Alkaline Phosphatase (38-126) U/L Creatine Kinase (30-135) U/L Troponin I (0.000-0.034) ng/mL Total Protein (6.3-8.2) g/dL Albumin (3.5-5.0) g/dL 05/19/23 05/19/23 Range/Units 14:21 14:21 WBC (3.8-10.6) k/uL RBC (3.80-5.40) m/uL Hgb (11.4-16.0) gm/dL Hct (34.0-46.0) % MCV (80.0-100.0) fL MCH (25.0-35.0) pg MCHC (31.0-37.0) g/dL RDW (11.5-15.5) % Plt Count (150-450) k/uL MPV Neutrophils % % Lymphocytes % % Monocytes % % Eosinophils % % Basophils % % Neutrophils # (1.3-7.7) k/uL Lymphocytes # (1.0-4.8) k/uL Monocytes # (0-1.0) k/uL Eosinophils # (0-0.7) k/uL Basophils # (0-0.2) k/uL PT (9.0-12.0) sec INR (<1.2) APTT (22.0-30.0) sec Sodium 134 L (137-145) mmol/L Potassium 4.4 (3.5-5.1) mmol/L Chloride 99 (98-107) mmol/L Carbon Dioxide 20 L (22-30) mmol/L Anion Gap 15 mmol/L BUN 25 H (7-17) mg/dL Creatinine 0.69 (0.52-1.04) mg/dL Est GFR (CKD-EPI)AfAm >90 (>60 ml/min/1.73 sqM) Est GFR (CKD-EPI)NonAf 84 (>60 ml/min/1.73 sqM) Glucose 141 H (74-99) mg/dL POC Glucose (mg/dL) (70-110) mg/dL POC Glu Co Founder And Ceo ID Calcium 10.2 (8.4-10.2) mg/dL Total Bilirubin 1.0 (0.2-1.3) mg/dL AST 30 (14-36) U/L ALT 25 (4-34) U/L Alkaline Phosphatase 75 (38-126) U/L Creatine Kinase 84 (30-135) U/L Troponin I <0.012 (0.000-0.034) ng/mL Total Protein 8.5 H (6.3-8.2) g/dL Albumin 5.3 H (3.5-5.0) g/dL Disposition Clinical Impression: Transient cerebral ischemia Disposition: ADMITTED IP TO THIS HOSP Referrals: Bobby Yepez DO [Primary Care Provider] - 1-2 days Time of Disposition: 17:09
[2023-05-19 14:35] LABS: Basophils % (A) 0 %; Eosinophils # (A) 0.1 k/uL (0-0.7); Eosinophils % (A) 1 %; HCT 42.3 % (34.0-46.0); HGB 14.2 gm/dL (11.4-16.0); Lymphocytes # (A) 1.5 k/uL (1.0-4.8); Lymphocytes % (A) 16 %; MCH 29.7 pg (25.0-35.0); MCHC 33.6 g/dL (31.0-37.0); MCV 88.2 fL (80.0-100.0); Mean Platelet Volume 7.3; Monocytes # (A) 0.6 k/uL (0-1.0); Monocytes % (A) 6 %; Neutrophils # (A) 7.4 k/uL (1.3-7.7); Neutrophils % (A) 76 %; Platelet Count 241 k/uL (150-450); RBC 4.79 m/uL (3.80-5.40); WBC 9.6 k/uL (3.8-10.6)
[2023-05-19 15:06] LABS: ALT 25 U/L (4-34); AST 30 U/L (14-36); African American GFR (CKD) >90 (>60 ml/min/1.73 sqM); Albumin 5.3 g/dL (3.5-5.0); Alkaline Phosphatase 75 U/L (38-126); Anion Gap 15 mmol/L; Blood Urea Nitrogen 25 mg/dL (7-17); Calcium 10.2 mg/dL (8.4-10.2); Carbon Dioxide 20 mmol/L (22-30); Chloride 99 mmol/L (98-107); Creatine Kinase 84 U/L (30-135); Glucose 141 mg/dL (74-99); Non-African American GFR(CKD) 84 (>60 ml/min/1.73 sqM); Potassium 4.4 mmol/L (3.5-5.1); Sodium 134 mmol/L (137-145); Total Protein 8.5 g/dL (6.3-8.2)
[2023-05-19 15:09] LABS: Partial Thromboplastin Time 23.2 sec (22.0-30.0); Prothrombin Time 10.4 sec (9.0-12.0)
--- NOTE | 2023-05-19 15:46 | CT ---
EXAMINATION TYPE: CT brain wo con DATE OF EXAM: 05/19/2023 COMPARISON: 12/19/2022 HISTORY: 77-year-old female Neuro deficit, acute, stroke suspected. TECHNIQUE: Examination was done in axial plane without intravenous contrast. Coronal and sagittal r econstructions performed. CT DLP: 1108.6 mGycm Automated exposure control for dose reduction was used. FINDINGS: There is no evidence of acute intracranial hemorrhage, acute ischemic changes, mass, mass-effect, or extra-axial fluid collection. There is no effacement of cerebral sulci or basal subarachnoid cister ns. There is no hydrocephalus. There is no midline shift. Reddy-white matter distinction is preserv ed. Mild age-related cerebral cortical volume loss. Mild atherosclerotic calcifications in the carotid si phons. Old lacunar infarct left basal ganglia. Partially empty sella. Trace mucosal thickening ethmoid air cells. Leftward nasal septal deviation. Mastoid air cells well p neumatized. Orbits and globes are intact. IMPRESSION: No acute intracranial abnormality seen.
--- NOTE | 2023-05-19 15:55 | CT ---
EXAMINATION TYPE: CT angio head neck DATE OF EXAM: 05/19/2023 COMPARISON: 12/19/2022 HISTORY: 77-year-old female Neuro deficit, acute, stroke suspected. TECHNIQUE: Contiguous axial scanning of the head and neck performed with IV Contrast, patient injecte d with 65 ml mL of Isovue 370. Coronal/sagittal reconstructions performed. 3-D reconstructions genera светлана on a dedicated independent workstation. CT DLP: 470.6 mGycm Automated exposure control for dose reduction was used. FINDINGS: NECK: Conventional arch vessel branching anatomy. Mild atherosclerotic arch calcifications. The bilateral vertebral arteries are codominant and patent throughout their course. Retropharyngeal right common carotid artery bifurcation with mild to moderate atherosclerotic calcifi cations. There is less than 20% narrowing by NASCET criteria. Retropharyngeal course right ICA.. The right ICA is otherwise patent. Moderate atherosclerotic calcifications left carotid bifurcation with retropharyngeal course. Comment there is mild, 25% narrowing at the level of the left carotid bulb by NASCET criteria. Retropharynge al course made ICA. Moderate to advanced spondylotic change lower cervical spine. Possible moderate to severe spinal blanca l stenosis C5-C6 and moderate at C6-C7. Brain: Mild to moderate atherosclerotic narrowing at the V3/V4 junction of the right vertebral artery. Other figueroa, the vertebral and basilar arteries as well as the remainder of the posterior circulation are pa tent. The internal carotid arteries show scattered mild atherosclerotic calcifications in the carotid sipho ns but are otherwise patent as is the remainder of the anterior circulation. No aneurysmal change is seen. The dural venous sinuses appear patent. IMPRESSION: HEAD: 1. MODERATE ATHEROSCLEROTIC CHANGE AT THE LEFT CAROTID BIFURCATION WITH MILD, 25% PROXIMAL LEFT ICA S TENOSIS. MILD, LESS THAN 20% PROXIMAL RIGHT ICA STENOSIS. 2. RETROPHARYNGEAL COURSE OF THE CAROTID BIFURCATIONS AND SEGMENTS OF THE BILATERAL ICA's. NECK: 3. MILD TO MODERATE ATHEROSCLEROTIC NARROWING AT THE V3/V4 JUNCTION OF THE RIGHT VERTEBRAL ARTERY. 4. OTHERWISE, NO LARGE VESSEL INTRACRANIAL ARTERIAL OCCLUSION, SIGNIFICANT STENOSIS, OR ANEURYSMAL CH MADDI IS SEEN.
--- NOTE | 2023-05-19 16:44 | XR ---
EXAMINATION TYPE: XR chest 2V DATE OF EXAM: 05/19/2023 COMPARISON: 12/19/2022 HISTORY: 77-year-old female confusion, right-sided numbness, altered mental status. TECHNIQUE: AP and lateral views FINDINGS: Heart borderline in size. Aorta and pulmonary vasculature within normal limits. No consolidation or p leural effusion. Mild hyperinflation. Cholecystectomy clips. IMPRESSION: Mild hyperinflation may relate to depth of inspiration or underlying emphysema. Borderline heart size . Otherwise, no acute process seen.
[2023-05-19] MEDS ORDERED: ASPIRIN 325 MG TAB PO STA (17:10)
[2023-05-19 20:15] LABS: Glucose,Whole Blood 154 mg/dL (70-110)
[2023-05-19] MEDS ORDERED: MECLIZINE 12.5 MG TAB PO PRN (22:02)
[2023-05-19] MEDS ORDERED: ALPRAZolam 0.25 MG TAB PO PRN (22:02)
[2023-05-19] MEDS ORDERED: ZOLPIDEM 5 MG TAB PO PRN (22:02)
[2023-05-19] MEDS ORDERED: MELOXICAM 7.5 MG TAB PO PRN (22:02)
[2023-05-19] MEDS ORDERED: CLOPIDOGREL 75 MG TAB PO SCH (22:06)
[2023-05-19] MEDS: CITALOPRAM HYDROBROMIDE 20 MG TAB PO SCH ×2 (22:10→23:03)
[2023-05-19] MEDS ORDERED: HYDROcodone/APAP 10-325MG 1 EACH TAB PO SCH (22:15)
[2023-05-19] MEDS: PRAVASTATIN SODIUM 20 MG TAB PO SCH (22:43)
[2023-05-19] MEDS: GLIMEPIRIDE 4 MG TAB PO SCH (22:43)
[2023-05-19] MEDS: LOSARTAN 50 MG TAB PO SCH (22:43)
[2023-05-19] MEDS: CLOPIDOGREL 75 MG TAB PO SCH (22:44)
[2023-05-19] MEDS: GABAPENTIN 300 MG CAP PO SCH (23:03)
[2023-05-20] MEDS ORDERED: HYDROcodone/APAP 10-325MG 1 EACH TAB PO SCH (06:00)
[2023-05-20] MEDS: PANTOPRAZOLE 40 MG TABLET PO SCH (06:04)
[2023-05-20] MEDS: HYDROcodone/APAP 10-325MG 1 EACH TAB PO SCH ×4 (06:04→23:43)
[2023-05-20 06:13] LABS: Glucose,Whole Blood 157 mg/dL (70-110)
[2023-05-20] MEDS: ASPIRIN 325 MG TAB PO SCH (08:16)
[2023-05-20] MEDS: CYANOCOBALAMIN 500 MCG TAB PO SCH (08:16)
[2023-05-20] MEDS: LINAGLIPTIN 5 MG TABLET PO SCH (08:16)
[2023-05-20] MEDS: GLIMEPIRIDE 4 MG TAB PO SCH ×2 (08:16→21:10)
[2023-05-20] MEDS: DAPAGLIFLOZIN PROPANEDIOL 10 MG TABLET PO SCH (08:16)
[2023-05-20] MEDS: CHOLECALCIFEROL 25 MCG (1000 IU) TABLET PO SCH (08:16)
[2023-05-20] MEDS: GABAPENTIN 300 MG CAP PO SCH ×2 (08:16→21:11)
[2023-05-20 09:00] LABS: HCT 38.7 % (34.0-46.0); HGB 12.9 gm/dL (11.4-16.0); MCH 29.7 pg (25.0-35.0); MCHC 33.3 g/dL (31.0-37.0); Mean Platelet Volume 7.7; Platelet Count 208 k/uL (150-450); RBC 4.35 m/uL (3.80-5.40); RDW 13.3 % (11.5-15.5); WBC 7.3 k/uL (3.8-10.6)
[2023-05-20] MEDS ORDERED: GABAPENTIN 300 MG CAP PO SCH (09:00)
[2023-05-20 09:25] LABS: African American GFR (CKD) >90 (>60 ml/min/1.73 sqM); Anion Gap 8 mmol/L; Blood Urea Nitrogen 27 mg/dL (7-17); Calcium 9.1 mg/dL (8.4-10.2); Carbon Dioxide 22 mmol/L (22-30); Chloride 105 mmol/L (98-107); Glucose 138 mg/dL (74-99); Magnesium 2.2 mg/dL (1.6-2.3); Non-African American GFR(CKD) 79 (>60 ml/min/1.73 sqM); Potassium 4.2 mmol/L (3.5-5.1); Sodium 135 mmol/L (137-145)
[2023-05-20] MEDS ORDERED: LORazepam 2 MG/ML INJ IV ONE (09:46)
[2023-05-20 11:52] LABS: Glucose,Whole Blood 314 mg/dL (70-110)
[2023-05-20 13:09] LABS: Chol/HDL Ratio 2.75 Ratio
--- NOTE | 2023-05-20 13:48 | P.CNNES ---
History of Present Illness Consult date: 05/20/23 History of Present Illness: The pt is a 77 y/o female who is seen in neurologic consultation on 2022, in collaboration with Selina Clifton, via teleneurology. The pt reports that she woke in the morning with weakness of her right side. She went into her doctors office and was advised to come the hospital. The was also experiencing slurred speech. The pt states that she was unable to hold onto a pen, to sign her name. She was having difficulty ambulating. The pt denies headache, visual changes, neck pain and numbness. The pt reports that she has been having difficulty with her balance and this is being investigated, as an outpt. The pt was to have an ENG in the office. In the emergency department, a CT scan of the brain was performed. It was negative for acute hemorrhage and infarct. CTA revealed moderate calcification of the left carotid bifurcation. No large vessel occlusion. The pt reports that by the time she arrived in the ER, her symptoms had resolved. She reportedly had a similar episode in December of this year. The pt takes Plavix as an outpt. CTA also reports moderate to severe degenerative disease of cervical spine with possible significant spinal canal stenosis. Past Medical History Past Medical History: CVA/TIA, Diabetes Mellitus, Hypertension History of Any Multi-Drug Resistant Organisms: None Reported Past Surgical History: Cholecystectomy, Hernia Repair, Hysterectomy, Joint Replacement Additional Past Surgical History / Comment(s): right hip replacement Past Psychological History: Anxiety Smoking Status: Never smoker Past Alcohol Use History: Rare Past Drug Use History: None Reported - Past Family History Father Family Medical History: Chest Pain / Angina, Myocardial Infarction ([place]) Mother Family Medical History: CVA/TIA Sister(s) Family Medical History: COPD Medications and Allergies Home Medications Medication Instructions Recorded Confirmed Type ALPRAZolam [Xanax] 0.25 mg PO BID PRN 03/20/16 05/19/23 History Citalopram Hydrobromide [CeleXA] 40 mg PO DAILY 03/20/16 05/19/23 History Glimepiride [Amaryl] 4 mg PO BID 03/20/16 05/19/23 History HYDROcodone/APAP 10-325MG [Hibbs 1 tab PO QID 03/20/16 05/19/23 History 10-325] Cholecalciferol [Vitamin D3 (25 50 mcg PO DAILY 12/19/22 05/19/23 History Mcg = 1000 Iu)] Cyanocobalamin [Vitamin B-12] 500 mcg PO DAILY 12/19/22 05/19/23 History Empagliflozin [Jardiance] 25 mg PO DAILY 12/19/22 05/19/23 History Magnesium 250 mg PO DAILY 12/19/22 05/19/23 History Meloxicam [Mobic] 7.5 mg PO BID PRN 12/19/22 05/19/23 History Zolpidem [Ambien] 5 - 10 mg PO HS PRN 12/19/22 05/19/23 History Clopidogrel [Plavix] 75 mg PO DAILY 30 Days #30 tab 12/21/22 05/19/23 Rx Gabapentin [Neurontin] 300 mg PO BID 05/19/23 05/19/23 History Irbesartan 300 mg PO HS 05/19/23 05/19/23 History Meclizine [Antivert] 12.5 mg PO BID PRN 05/19/23 05/19/23 History Pravastatin Sodium [Pravachol] 20 mg PO HS 05/19/23 05/19/23 History Ubidecarenone [Coenzyme Q10] 100 mg PO DAILY 05/19/23 05/19/23 History sitaGLIPtin [Januvia] 100 mg PO DAILY 05/19/23 05/19/23 History Allergies Allergy/AdvReac Type Severity Reaction Status Date / Time codeine AdvReac Unknown Verified 05/19/23 17:41 Physical Examination - Vital Signs Vital Signs: Vital Signs Temp Pulse Pulse Resp BP BP Pulse Ox 05/20/23 09:42 96 05/20/23 08:00 98.2 F 63 18 157/82 97 05/20/23 04:00 98.0 F 72 16 135/75 99 05/19/23 23:04 98.2 F 71 16 166/82 98 05/19/23 20:00 98.1 F 71 16 145/73 98 05/19/23 16:12 70 18 118/68 98 05/19/23 15:15 62 16 149/82 99 05/19/23 15:00 58 L 20 139/90 100 05/19/23 14:45 64 15 171/100 100 05/19/23 14:30 59 L 20 169/95 99 05/19/23 14:15 59 L 16 162/68 99 05/19/23 14:00 65 11 L 183/99 98 05/19/23 13:44 98.4 F 66 20 175/55 99 Intake and Output 05/19/23 05/20/23 05/20/23 22:59 06:59 14:59 Intake Total 10 1210 10 Balance 10 1210 10 Intake: IV 10 10 10 Invasive Line 1 10 10 10 Oral 1200 Other: Voiding Method Diaper Diaper Diaper # Voids 2 3 # Bowel Movements 0 Weight 75.4 kg General: The pt is reclining in the bed. She is well nourished and in no acute distress HEENT: Head is atraumatic, normocephalic Neck: Supple without bruits Heart: Regular rate and rhythm without murmur Lungs: No shortness of breath or cough Extremites: Without edema Neurologic Examination Mental status: The pt is awake, alert and oriented x3. Speech is clear. There is no anomia or dysarthria. The pt is able to repeat phrases Cranial Nerves: Pupils are equal at 3 mm and reactive. Visual hamilton are intact. Extraocular muscles intact. Facial sensation is intact. No facial asymmetry. Hearing is grossly intact. Uvula and palate are midline. Shoulder strug is symmetric. Tongue protrudes midline. Motor: Strength (right/left): rug receiving clerk 5/4. Triceps 5/4. Biceps 5/4. Hip flexors 5/5. Ankle plantar flexors 5/5. Ankle dorsiflexors 5/5. Sensation: Light touch is intact throught. There is no extinction with double simultaneous stimulation Coordination: Finger to nose testing is intact. There is slowing of rigt side BETTY Deep tendon reflexes: 2+/4+ in the left upper and lower extremities. Right sided reflexes 1+/4+. Plantar responses are downgoing Gait: Not assessed at this time Results - Laboratory Findings CBC and BMP: 05/20/23 08:01 05/20/23 08:01 Abnormal Lab Findings: Abnormal Labs 05/19/23 05/19/23 05/19/23 14:05 14:21 20:14 Sodium 134 L Carbon Dioxide 20 L BUN 25 H Glucose 141 H POC Glucose (mg/dL) 145 H 154 H Total Protein 8.5 H Albumin 5.3 H 05/20/23 05/20/23 05/20/23 06:10 08:01 11:38 Sodium 135 L Carbon Dioxide BUN 27 H Glucose 138 H POC Glucose (mg/dL) 157 H 314 H Total Protein Albumin - Diagnostic Findings Comments: CT brain images have been personally reviewed Assessment and Plan Assessment: 1. The pt is 77 y/o female who presents with right sided weakness that has since resolved. The neuro exam is inconsistent. The pt has slowing of right sided rapid alternating movements, yet she is more hyperreflexic on the left. C onsider chronic vs acute findings or secondary to cervical spinal stenosis 2. History of diabetes 3. History of HTN Plan: 1. Stroke order set should be placed 2. MRI brain has been ordered 3. Ativan 1mg IVP for claustrophobia 4. Restart ASA 81mg 5. Consider holter monitor at discharge 6. Vascular surgery consultation regarding left carotid stenosis Thank you for allowing us to participate in the care of this pt. Time with Patient: Greater than 30 (spent 50 minutes caring for this pt today, including obtaining a history, examining the pt, reviewing imaging, labs, chart documentation, placing orders and creating this note)
[2023-05-20 16:30] LABS: Glucose,Whole Blood 299 mg/dL (70-110)
--- NOTE | 2023-05-20 19:47 | US ---
EXAMINATION TYPE: US carotid duplex BILAT DATE OF EXAM: 05/20/2023 COMPARISON: CLINICAL INDICATION: Female, 77 years old with history of stroke; HTN- on meds. Left side numbness. TECHNIQUE: Carotid duplex ultrasound examination. Indirect Doppler criteria was utilized. FINDINGS: EXAM MEASUREMENTS: RIGHT: Peak Systolic Velocity (PSV) cm/sec ----- Right CCA: 45.3 ----- Right ICA: 103.0 ----- Right ECA: 72.3 ICA/CCA ratio: 2.3 RIGHT: End Diastole cm/sec ----- Right CCA: 6.9 ----- Right ICA: 22.8 ----- Right ECA: 0.0 LEFT: Peak Systolic Velocity (PSV) cm/sec ----- Left CCA: 59.8 ----- Left ICA: 95.2 ----- Left ECA: 75.7 ICA/CCA ratio: 1.6 LEFT: End Diastole cm/sec ----- Left CCA: 10.1 ----- Left ICA: 24.8 ----- Left ECA: 0.0 VERTEBRALS (direction of flow): Right Vertebral: Antegrade Left Vertebral: Antegrade Rhythm: Normal ICICLE MACHINE OPERATOR NOTES: Plaquing at the right internal carotid artery. Bilateral wall thickening. IMPRESSION: 1. Atheromatous plaquing without significant flow-limiting stenosis. Criteria for Assigning % of Stenosis / Diameter reduction (Estimation based on the indirect measurements of the internal carotid artery velocities (ICA PSV). 1. Normal (no stenosis)=ICA PSV < 125 cm/s: ratio < 2.0: ICA EDV<40 cm/s. 2. Less than 50% stenosis=ICA PSV < 125 cm/s: ratio < 2.0: ICA EDV<40 cm/s. 3. 50 to 69% stenosis=ICA PSV of 125 to 230 cm/s: ration 2.0 ? 4.0: ICA EDV 40-100 cm/s. 4. Greater than 70% stenosis to near occlusion= ICA PSV > 230 cm/s: ratio > 4.0: ICA EDV > 100 cm/s. 5. Near occlusion= ICA PSV velocities may be low or undetectable: variable ratio and ICA EDV. 6. Total occlusion=unable to detect flow.
--- NOTE | 2023-05-20 19:49 | HP ---
HISTORY AND PHYSICAL CHIEF COMPLAINT: Right-sided weakness. HISTORY OF PRESENT ILLNESS: This is a 77-year-old woman with a past medical history of multiple medical issues including CVA, TIA, diabetes mellitus, was noted to have right-sided weakness. The patient had weakness of the right upper arm and right leg and difficulty speaking once. The patient came to [facility] and stroke code was called, and the initial workup did not show any acute abnormality. MRI scan was recommended by Neurology. CT reviewed moderate calcification of the left carotid bifurcation. Spinal stenosis is also a consideration. No chest pain. No palpitation. PAST MEDICAL HISTORY: Reviewed include CVA, diabetes mellitus. Rest of the history and rest of the chart is also reviewed. HOME MEDICATIONS: Reviewed include vitamin D3. Doses and rest of medications reviewed. ALLERGIES: Codeine. FAMILY HISTORY: History of heart disease in the family. No history of strokes. SOCIAL HISTORY: No history of smoking. Rare alcohol. REVIEW OF SYSTEMS: Fourteen-point review of systems is negative except as mentioned earlier. PHYSICAL EXAMINATION: VITAL SIGNS: Pulse 63, blood pressure 157/82, respirations 18. CHEST: Clear to auscultation. CARDIOVASCULAR: S1, S2. ABDOMEN: Soft. NERVOUS SYSTEM: Minimal facial deviation on the right side. Otherwise, no weakness. No signs of incoordination. SKIN: No ulcer, rash, or bleeding. HEENT: Normal. LABORATORY DATA: Reviewed. ASSESSMENT: 1. Acute right-sided weakness, possible acute transient ischemic attack. 2. Diabetes mellitus, type 2. 3. Hypertension. 4. History of cholecystectomy. 5. History of cerebrovascular accident, transient ischemic attack. RECOMMENDATIONS: Recommend to continue current management and symptomatic treatment. Otherwise, at this time, I recommend complete neurovascular workup including 2D echo. Neurology consultation. Rule out carotid stenosis. Recommend ultrasound of the carotids. Antiplatelet agents. Further recommendations to follow. MMODL / IJN: [id number] /
[2023-05-20 20:39] LABS: Glucose,Whole Blood 228 mg/dL (70-110)
[2023-05-20] MEDS ORDERED: CITALOPRAM HYDROBROMIDE 20 MG TAB PO SCH (21:00)
[2023-05-20] MEDS: LOSARTAN 50 MG TAB PO SCH (21:10)
[2023-05-20] MEDS: PRAVASTATIN SODIUM 20 MG TAB PO SCH (21:11)
[2023-05-20] MEDS: CLOPIDOGREL 75 MG TAB PO SCH (21:11)
[2023-05-20] MEDS: CITALOPRAM HYDROBROMIDE 20 MG TAB PO SCH (21:12)
[2023-05-20] MEDS: HEPARIN SODIUM,PORCINE 5,000 UNIT/ML 1 ML VIAL SQ SCH (21:13)
[2023-05-21] MEDS: HYDROcodone/APAP 10-325MG 1 EACH TAB PO SCH ×3 (06:17→18:13)
[2023-05-21 06:21] LABS: Glucose,Whole Blood 218 mg/dL (70-110)
[2023-05-21 07:42] VITALS: TEMP 97.7
[2023-05-21] MEDS: GABAPENTIN 300 MG CAP PO SCH ×2 (07:43→21:09)
[2023-05-21] MEDS: DAPAGLIFLOZIN PROPANEDIOL 10 MG TABLET PO SCH (07:43)
[2023-05-21] MEDS: CYANOCOBALAMIN 500 MCG TAB PO SCH (07:43)
[2023-05-21] MEDS: LINAGLIPTIN 5 MG TABLET PO SCH (07:43)
[2023-05-21] MEDS: CHOLECALCIFEROL 25 MCG (1000 IU) TABLET PO SCH (07:43)
[2023-05-21] MEDS: ASPIRIN 325 MG TAB PO SCH (07:43)
[2023-05-21] MEDS: PANTOPRAZOLE 40 MG TABLET PO SCH (07:43)
[2023-05-21] MEDS: GLIMEPIRIDE 4 MG TAB PO SCH ×2 (07:44→21:09)
[2023-05-21] MEDS: HEPARIN SODIUM,PORCINE 5,000 UNIT/ML 1 ML VIAL SQ SCH ×2 (07:58→21:01)
[2023-05-21] MEDS ORDERED: DEXTROSE 50% SYRINGE 50 ML IVP PRN ×2 (11:06)
[2023-05-21 11:39] LABS: Glucose,Whole Blood 157 mg/dL (70-110)
[2023-05-21] MEDS: INSULIN ASPART (NovoLOG) 100 UNIT/ML VIAL SQ SCH ×3 (11:43→21:09)
[2023-05-21 11:47] LABS: Basophils % (A) 1 %; Eosinophils # (A) 0.2 k/uL (0-0.7); Eosinophils % (A) 3 %; HCT 43.4 % (34.0-46.0); HGB 13.7 gm/dL (11.4-16.0); Lymphocytes # (A) 2.3 k/uL (1.0-4.8); Lymphocytes % (A) 37 %; MCH 28.9 pg (25.0-35.0); MCHC 31.5 g/dL (31.0-37.0); MCV 91.6 fL (80.0-100.0); Mean Platelet Volume 7.5; Monocytes # (A) 0.4 k/uL (0-1.0); Monocytes % (A) 6 %; Neutrophils # (A) 3.2 k/uL (1.3-7.7); Neutrophils % (A) 51 %; Platelet Count 207 k/uL (150-450); RBC 4.74 m/uL (3.80-5.40); RDW 13.2 % (11.5-15.5); WBC 6.3 k/uL (3.8-10.6)
[2023-05-21 12:18] LABS: African American GFR (CKD) >90 (>60 ml/min/1.73 sqM); Anion Gap 10 mmol/L; Blood Urea Nitrogen 26 mg/dL (7-17); Calcium 9.1 mg/dL (8.4-10.2); Carbon Dioxide 19 mmol/L (22-30); Chloride 104 mmol/L (98-107); Glucose 152 mg/dL (74-99); Non-African American GFR(CKD) 85 (>60 ml/min/1.73 sqM); Potassium 4.7 mmol/L (3.5-5.1); Sodium 133 mmol/L (137-145)
[2023-05-21 16:26] LABS: Glucose,Whole Blood 208 mg/dL (70-110)
--- NOTE | 2023-05-21 16:37 | P.PN ---
Subjective Progress Note Date: 05/21/23 The pt is seen in neurologic follow up on 2022, in collaboration with Selina Clifton, via teleneurology. The pt is seated on the edge of her bed. She reports feeling well. She denies new neurologic symptoms. She has reportedly been up in the hallway and in the bedside chair. MRI of brain has not been completed. Objective - Vital Signs Vital signs: Vital Signs Temp 97.7 F 05/21/23 07:39 Pulse 64 05/21/23 15:28 Resp 17 05/21/23 15:28 BP 135/68 05/21/23 15:28 Pulse Ox 99 05/21/23 15:28 FiO2 Intake & Output 05/20/23 05/21/23 05/21/23 18:59 06:59 18:59 Intake Total 138 800 600 Output Total 0 Balance 138 800 600 Weight 78.5 kg Intake: IV 20 Invasive Line 1 20 Oral 118 800 600 Output: Gastric Drainage 0 Urine 0 Stool 0 Urine/Stool Mix 0 Emesis 0 Oral Regurgitation 0 Other 0 Other: Voiding Method Diaper Diaper Toilet Diaper # Voids 2 2 # Bowel Movements 0 0 - Exam Neurologic Examination Mental status: The pt is awake, alert and oriented x3. Speech is clear. There is no anomia or dysarthria. The pt is able to repeat phrases Cranial Nerves: Pupils are equal at 3 mm and reactive. Visual hamilton are intact. Extraocular muscles intact. Facial sensation is intact. No facial asymmetry. Hearing is grossly intact. Uvula and palate are midline. Shoulder strug is symmetric. Tongue protrudes midline. Coordination: Finger to nose testing is intact. Rapid alternating movements are intact bilaterally - Labs CBC & Chem 7: 05/21/23 10:30 05/21/23 10:30 Labs: Abnormal Lab Results - Last 24 Hours (Table) 05/20/23 05/21/23 05/21/23 Range/Units 20:37 06:19 10:30 Sodium 133 L (137-145) mmol/L Carbon Dioxide 19 L (22-30) mmol/L BUN 26 H (7-17) mg/dL Glucose 152 H (74-99) mg/dL POC Glucose (mg/dL) 228 H 218 H (70-110) mg/dL 09/10/23 09/10/23 Range/Units 11:37 16:24 Sodium (137-145) mmol/L Carbon Dioxide (22-30) mmol/L BUN (7-17) mg/dL Glucose (74-99) mg/dL POC Glucose (mg/dL) 157 H 208 H (70-110) mg/dL Assessment and Plan Assessment: Assessment and Plan Assessment: 1. The pt is 77 y/o female who presents with right sided weakness that has since resolved. The neuro exam is inconsistent. Consider chronic vs acute findings or secondary to cervical spinal stenosis 2. History of diabetes 3. History of HTN Plan: 1. Stroke order set should be placed 2. MRI brain has been ordered 3. Ativan 1mg IVP for claustrophobia 4. Restart ASA 81mg 5. Consider holter monitor at discharge 6. Vascular surgery consultation regarding left carotid stenosis Thank you for allowing us to participate in the care of this pt. Dr. Dustin Castro will assume neurologic coverage of this pt as of 2022 Time with Patient: Less than 30 (20 minutes)
[2023-05-21 20:24] LABS: Glucose,Whole Blood 300 mg/dL (70-110)
[2023-05-21] MEDS: CLOPIDOGREL 75 MG TAB PO SCH (21:09)
[2023-05-21] MEDS: CITALOPRAM HYDROBROMIDE 20 MG TAB PO SCH (21:09)
[2023-05-21] MEDS: LOSARTAN 50 MG TAB PO SCH (21:09)
[2023-05-21] MEDS: PRAVASTATIN SODIUM 20 MG TAB PO SCH (21:09)
[2023-05-21 23:23] LABS: Chol/HDL Ratio 2.97 Ratio
[2023-05-21 23:24] LABS: LDL Cholesterol,Calculated 62.8 mg/dL (0.0-131.0)
[2023-05-22] MEDS: HYDROcodone/APAP 10-325MG 1 EACH TAB PO SCH ×3 (00:02→12:16)
--- NOTE | 2023-05-22 04:22 | PN ---
PROGRESS NOTE DATE OF SERVICE: 05/21/2023 SUBJECTIVE: This is a 77-year-old woman, who was admitted with right-sided weakness, is being closely monitored. No chest pain. No palpitation. MRI is pending. Neurology is following the patient closely. OBJECTIVE: VITAL SIGNS: Pulse is 66, blood pressure 143/78, respirations 16. CHEST: Clear to auscultation. CARDIOVASCULAR: S1, S2. ABDOMEN: Soft. NERVOUS SYSTEM: No focal deficits. LABORATORY DATA: Reviewed. ASSESSMENT: 1. Acute right-sided weakness, possible transient ischemic attack. 2. Diabetes mellitus, type 2. 3. Hypertension. 4. History of cholecystectomy. 5. History of cerebrovascular accident, transient ischemic attack. RECOMMENDATIONS: Recommend to continue current medications, continue symptomatic treatment. Otherwise, at this time, I recommend MRI. Increase ambulation. Follow up with Neurology, antiplatelet agents. Further recommendations to follow. MMODL / IJN: [id number] /
[2023-05-22 06:05] LABS: Glucose,Whole Blood 132 mg/dL (70-110)
[2023-05-22] MEDS: INSULIN ASPART (NovoLOG) 100 UNIT/ML VIAL SQ SCH ×2 (06:06→12:03)
[2023-05-22] MEDS: PANTOPRAZOLE 40 MG TABLET PO SCH (06:12)
[2023-05-22] MEDS: CHOLECALCIFEROL 25 MCG (1000 IU) TABLET PO SCH (08:50)
[2023-05-22] MEDS: GLIMEPIRIDE 4 MG TAB PO SCH (08:50)
[2023-05-22] MEDS: GABAPENTIN 300 MG CAP PO SCH (08:50)
[2023-05-22] MEDS: CYANOCOBALAMIN 500 MCG TAB PO SCH (08:50)
[2023-05-22] MEDS: DAPAGLIFLOZIN PROPANEDIOL 10 MG TABLET PO SCH (08:50)
[2023-05-22] MEDS: HEPARIN SODIUM,PORCINE 5,000 UNIT/ML 1 ML VIAL SQ SCH (08:50)
[2023-05-22] MEDS: LINAGLIPTIN 5 MG TABLET PO SCH (08:50)
[2023-05-22] MEDS: ASPIRIN 325 MG TAB PO SCH (08:50)
[2023-05-22 08:55] VITALS: RESP 16
[2023-05-22 11:48] LABS: Glucose,Whole Blood 152 mg/dL (70-110)
[2023-05-22 12:19] VITALS: BP 146/85; PULSE 69
--- NOTE | 2023-05-22 15:08 | P.PN ---
Subjective Progress Note Date: 05/22/23 I am seeing the patient for the first time during this admission. Please refer to Dr. Montemayor's note for further details. The patient is accompanied with her daughter. The patient had transient episode of right sided numbness and weakness. She was not on antiplatelets prior to this admission. Objective - Vital Signs Vital signs: Vital Signs Temp 97.7 F 05/21/23 07:39 Pulse 69 05/22/23 12:00 Resp 16 05/22/23 12:00 BP 146/85 05/22/23 12:00 Pulse Ox 98 05/22/23 12:00 FiO2 Intake & Output 05/21/23 05/22/23 05/22/23 18:59 06:59 18:59 Intake Total 600 360 Output Total 0 0 0 Balance 600 0 360 Intake: Oral 600 360 Output: Gastric Drainage 0 Urine 0 Stool 0 0 0 Urine/Stool Mix 0 Emesis 0 Oral Regurgitation 0 Other 0 Other: Voiding Method Toilet Toilet Toilet Diaper Diaper Diaper # Voids 2 1 1 # Bowel Movements 0 - Exam GENERAL: The patient is lying in bed and is not in acute distress. NEUROLOGICAL: Higher mental function: The patient is awake, alert, oriented to self, place and time. Patient is following commands. No aphasia and no neglect. Cranial nerves: The pupils are round, equal and reactive to light. Visual hamilton are full to confrontation throughout. Extraocular movement is intact no nystagmus is noted. Facial sensation is normal to touch throughout. The facial strength is normal throughout. Tongue is midline and moved [id number] without any difficulty. No dysarthria is noted. Motor: The strength is 5 over 5 throughout. Normal tone and bulk. Cerebellum: Normal finger to nose bilaterally. Sensation: Sensation is normal to touch throughout. SOME OF THE WORK-UP DURING THIS HOSPITAL VISIT CONSISTED OF: CTA head: Moderate atherosclerotic change at the left carotid bifurcation with mild, 25 proximal left ICA stenosis. Mild, less than 20% proximal right ICA stenosis. CTA neck: Mild to moderate atherosclerotic narrowing at V3/V4 junction of right vertebral artery. Carotid duplex: Atheromatous plaquing without significant flow-limiting stenosis. - Labs CBC & Chem 7: 05/21/23 10:30 05/21/23 10:30 Labs: Abnormal Lab Results - Last 24 Hours (Table) 0905/21/23 05/21/23 Range/Units 10:30 16:24 20:22 POC Glucose (mg/dL) 208 H 300 H (70-110) mg/dL Triglycerides 217.00 H (0.00-149.00) mg/dL VLDL Cholesterol, Calc 43.40 H (5.00-40.00) mg/dL 05/22/23 05/22/23 Range/Units 06:04 11:46 POC Glucose (mg/dL) 132 H 152 H (70-110) mg/dL Triglycerides (0.00-149.00) mg/dL VLDL Cholesterol, Calc (5.00-40.00) mg/dL Assessment and Plan Assessment: This is a 77 y/o woman who presents because of right sided weakness, numbness. Transient right sided weakness and numbness: Probable TIA DM History of Hypertension. Plan: Pending MRI Brain, 2D echo. She is on ASA 325mg daily (was not taking any antiplatelets prior to this). She is also on Pravastatin 20mg qhs. Continue neuro checks Cardiac monitoring. PT, OT and SALES REPRESENTATIVE [employer] are consulted. Agree with event monitor for [address] Montemayor recommended vascular surgery team but no consult for vascular was placed. There is no significant stenosis seen on CTA or carotid. I spoke with primary and they recommended outpatient vascular follow-up and I agree with them since no significant stenosis. Will defer the rest of medical management to the primary team. For DVT prophylaxis: On subq heparin. Recommend the patient to follow-up with neurologist as outpatient within 1-2 weeks. The plan is discussed with patient and her daughter. Time with Patient: Less than 30
[2023-05-22] MEDS ORDERED: LORazepam 2 MG/ML INJ IV STA (15:19)
--- NOTE | 2023-05-22 16:29 | MR ---
EXAMINATION TYPE: MR brain wo con DATE OF EXAM: 05/22/2023 4:06 PM CLINICAL INDICATION:Female, 77 years old with history of cva; COMPARISON: 05/19/2023. TECHNIQUE: Multi planar, multi sequence imaging was performed through the brain including: T1, T2, In version recovery, Diffusion weighted imaging, and gradient echo imaging. No gadolinium was given. FINDINGS: Restricted diffusion within the left thalamus with associated high T2 signal. The self-white junctions, ventricular system, and cisterns appear unremarkable. Scattered foci of hi gh T2 signal intensity are seen within the periventricular white matter. Midline structures show no a bnormality. The susceptibility weighted images do not reveal any evidence for micro-hemorrhage. The bone marrow signal is within normal limits. Paranasal sinuses and mastoid air cells: No significant paranasal sinus disease. Visualized orbits: Radiopaque. IMPRESSION: 1. Acute/subacute CVA involving the left thalamus. 2. Nonspecific white matter changes, likely secondary to small vessel ischemic disease.
[2023-05-22 16:41] LABS: Glucose,Whole Blood 217 mg/dL (70-110)
--- NOTE | 2023-05-23 00:45 | P.DS ---
Providers Date of admission: 05/19/23 17:13 Expected date of discharge: 05/22/23 Attending physician: Griselda Silva Consults: 05/19/23 17:12 Consult Physician Routine Consulting Provider: Silvana Gandara Consult Reason/Comments: TIA Do you want consulting provider notified?: Yes Primary care physician: Bobby Yepez [facility] Course: Final diagnosis Acute right-sided weakness, CVA noted on MRI Diabetes mellitus, type II Hypertension history History of cholecystectomy History of CVA/TIA Obesity with BMI of 32.7 GI prophylaxis DVT prophylaxis Full code Discharge disposition Patient is being discharged in a stable condition with guarded prognosis to home. Patient will follow-up with Dr. Yepez in the outpatient setting upon discharge. Patient is to continue with medications as mentioned below and outpatient follow-up with neurology as scheduled. Patient to have a foreign monitor placed in follow-up with cardiology and recommend 2-D echo. Total time taken is greater than 35 minutes. Hospital course This is a 77-year-old female who was recently admitted with right-sided weakness being closely monitored underwent extensive neurological exam. MRI of the brain confirmed CVA. Patient will continue on statin along with Plavix and aspirin and close outpatient follow-up with neurology. Patient will have an event monitor placed on discharge recommend follow-up with cardiology and also recommend 2-D echo in the outpatient setting. Patient to follow-up with her new neurologist Dr. Walker if she has also following with him for pain management. Patient will also follow-up with vascular surgery in the outpatient setting. Patient has been cleared by consultation for discharge. Please refer to other consultation notes for further HPI. Currently no reports of chest pain, shortness of breath, or palpitations. Patient is afebrile. No reports of nausea or vomiting and patient is tolerating diet. Patient will be discharged home today. Physical exam: Gen: This is a 77-year-old female who is awake, alert and oriented 3, well- developed, well-nourished, obese HEENT: Head is atraumatic, normocephalic. Pupils equal, round. Sclerae is anicteric. NECK: Supple. No JVD. No lymphadenopathy. No thyromegaly. LUNGS: Clear to auscultation. No wheezes or rhonchi. No intercostal retractions. HEART: Regular rate and rhythm. No murmur. ABDOMEN: Soft. Bowel sounds are present. No masses. No tenderness. EXTREMITIES: No pedal edema. No calf tenderness. NEUROLOGICAL: Patient is awake, alert and oriented x3. Cranial nerves 2 through 12 are grossly intact. No focal deficits noted Please refer to medication reconciliation sheet for a list of medications. The impression and plan of care has been dictated by Karol Chun Nurse Pra ctitioner as directed. Dr. Edgar MD I have performed a history and examination and MDM of this patient, discussed the same with the dictator, and agree with the dictator's assessment and plan as written ,documented as a scribe. Based on total visit time, I have performed more than 50% of the visit. Plan - Discharge Summary New Discharge Prescriptions: New Aspirin 325 mg PO DAILY #30 tab Losartan [Cozaar] 100 mg PO HS #30 tab Continue Glimepiride [Amaryl] 4 mg PO BID HYDROcodone/APAP 10-325MG [Den[place] 10-325] 1 tab PO QID ALPRAZolam [Xanax] 0.25 mg PO BID PRN PRN Reason: Anxiety Citalopram Hydrobromide [CeleXA] 40 mg PO DAILY Zolpidem [Ambien] 5 - 10 mg PO HS PRN PRN Reason: SLEEP Meloxicam [Mobic] 7.5 mg PO BID PRN PRN Reason: Pain Cyanocobalamin [Vitamin B-12] 500 mcg PO DAILY Cholecalciferol [Vitamin D3 (25 Mcg = 1000 Iu)] 50 mcg PO DAILY Clopidogrel [Plavix] 75 mg PO DAILY 30 Days #30 tab Meclizine [Antivert] 12.5 mg PO BID PRN PRN Reason: Vertigo Empagliflozin [Jardiance] 25 mg PO DAILY Magnesium 250 mg PO DAILY Gabapentin [Neurontin] 300 mg PO BID Pravastatin Sodium [Pravachol] 20 mg PO HS sitaGLIPtin [Januvia] 100 mg PO DAILY Ubidecarenone [Coenzyme Q10] 100 mg PO DAILY Discontinued Irbesartan 300 mg PO HS Discharge Medication List ALPRAZolam [Xanax] 0.25 mg PO BID PRN 03/20/16 [History] Citalopram Hydrobromide [CeleXA] 40 mg PO DAILY 03/20/16 [History] Glimepiride [Amaryl] 4 mg PO BID 03/20/16 [History] HYDROcodone/APAP 10-325MG [Den[place] 10-325] 1 tab PO QID 03/20/16 [History] Cholecalciferol [Vitamin D3 (25 Mcg = 1000 Iu)] 50 mcg PO DAILY 12/19/22 [Histo ry] Cyanocobalamin [Vitamin B-12] 500 mcg PO DAILY 12/19/22 [History] Empagliflozin [Jardiance] 25 mg PO DAILY 12/19/22 [History] Magnesium 250 mg PO DAILY 12/19/22 [History] Meloxicam [Mobic] 7.5 mg PO BID PRN 12/19/22 [History] Zolpidem [Ambien] 5 - 10 mg PO HS PRN 12/19/22 [History] Clopidogrel [Plavix] 75 mg PO DAILY 30 Days #30 tab 12/21/22 [Rx] Gabapentin [Neurontin] 300 mg PO BID 05/19/23 [History] Meclizine [Antivert] 12.5 mg PO BID PRN 05/19/23 [History] Pravastatin Sodium [Pravachol] 20 mg PO HS 05/19/23 [History] Ubidecarenone [Coenzyme Q10] 100 mg PO DAILY 05/19/23 [History] sitaGLIPtin [Januvia] 100 mg PO DAILY 05/19/23 [History] Aspirin 325 mg PO DAILY #30 tab 05/22/23 [Rx] Losartan [Cozaar] 100 mg PO HS #30 tab 05/22/23 [Rx] Follow up Appointment(s)/Referral(s): Ana Barber DO [STAFF PHYSICIAN] - 2 Weeks Sherrie Walker MD [Medical Doctor] - 1 Week Bobby Yepez DO [Primary Care Provider] - 1-2 days Activity/Diet/Wound Care/Special Instructions: Event monitor on discharge Activity Limited until follow-up Follow-up with neurology in 1-2 weeks Continue with aspirin and Plavix Follow-up with primary care provider on discharge Continue taking medications as prescribed Follow-up with vascular surgery outpatient Discharge Disposition: HOME SELF-CARE
== END 2023-05-22 17:04 | disposition home or self-care (01) | DRG 65 ==
LOC: EC 13:42 → 3SCARD 17:13
PROVIDERS: ADMIT Hospitalist; ATTEND Hospitalist
DX: I63.9 Cerebral infarction, unspecified (principal); G45.9 Transient cerebral ischemic attack, unspecified; E66.9 Obesity, unspecified; Z68.37 Body mass index [BMI] 37.0-37.9, adult; Z90.49 Acquired absence of other specified parts of digestive tract; I10 Essential (primary) hypertension; E11.9 Type 2 diabetes mellitus without complications; Z79.02 Long term (current) use of antithrombotics/antiplatelets; Z68.32 Body mass index [BMI] 32.0-32.9, adult; Z79.1 Long term (current) use of non-steroidal anti-inflammatories (NSAID); Z79.899 Other long term (current) drug therapy; Z79.84 Long term (current) use of oral hypoglycemic drugs; Z90.710 Acquired absence of both cervix and uterus; Z96.641 Presence of right artificial hip joint; Z86.73 Personal history of transient ischemic attack (TIA), and cerebral infarction without residual deficits; Z87.19 Personal history of other diseases of the digestive system; Z82.49 Family history of ischemic heart disease and other diseases of the circulatory system; Z79.82 Long term (current) use of aspirin; Z88.5 Allergy status to narcotic agent
CPT/HCPCS: 36415; 70450; 70496; 70498; 70551; 71046; 80048; 80053; 80061; 82550; 83036; 83735; 84484; 85025; 85027; 85610; 85730; 93270; 93880; 94760

== ENCOUNTER 2024-01-22 15:00 | Emergency (ER) | payer MEDICARE ==
[2024-01-22 15:49] VITALS: RESP 16; TEMP 98.3
--- NOTE | 2024-01-22 16:11 | ED ---
Upper Extremity HPI - General Chief Complaint: Extremity Injury, Upper Stated Complaint: R arm pain Time Seen by Provider: 01/22/24 15:20 Source: patient, RN notes reviewed Mode of arrival: ambulatory Limitations: no limitations - History of Present Illness Initial Comments: 78-year-old female on Plavix presenting with right shoulder pain x 1 week. Sta jaleel she had a mechanical fall 1 week ago where she lost her balance and fell into the TV stand and onto the ground, hitting the right side of her head and landing on her right shoulder. She has been having pain ever since, the pain is most severe when she lifts her arm above her head. Describes the pain as sharp and with movement. She also admits right elbow pain. Denies loss of consciousness, headache, chest pain, shortness of breath. - Related Data Home Medications Medication Instructions Recorded Confirmed ALPRAZolam [Xanax] 0.25 mg PO BID PRN 03/20/16 05/19/23 Citalopram Hydrobromide [CeleXA] 40 mg PO DAILY 03/20/16 05/19/23 Glimepiride [Amaryl] 4 mg PO BID 03/20/16 05/19/23 HYDROcodone/APAP 10-325MG [[place] 1 tab PO QID 03/20/16 05/19/23 10-325] Cholecalciferol [Vitamin D3 (25 50 mcg PO DAILY 12/19/22 05/19/23 Mcg = 1000 Iu)] Cyanocobalamin [Vitamin B-12] 500 mcg PO DAILY 12/19/22 05/19/23 Empagliflozin [Jardiance] 25 mg PO DAILY 12/19/22 05/19/23 Magnesium 250 mg PO DAILY 12/19/22 05/19/23 Meloxicam [Mobic] 7.5 mg PO BID PRN 12/19/22 05/19/23 Zolpidem [Ambien] 5 - 10 mg PO HS PRN 12/19/22 05/19/23 Gabapentin [Neurontin] 300 mg PO BID 05/19/23 05/19/23 Meclizine [Antivert] 12.5 mg PO BID PRN 05/19/23 05/19/23 Pravastatin Sodium [Pravachol] 20 mg PO HS 05/19/23 05/19/23 Ubidecarenone [Coenzyme Q10] 100 mg PO DAILY 05/19/23 05/19/23 sitaGLIPtin [Januvia] 100 mg PO DAILY 05/19/23 05/19/23 Previous Rx's Medication Instructions Recorded Clopidogrel [Plavix] 75 mg PO DAILY 30 Days #30 tab 12/21/22 Aspirin 325 mg PO DAILY #30 tab 05/22/23 Losartan [Cozaar] 100 mg PO HS #30 tab 05/22/23 Allergies Allergy/AdvReac Type Severity Reaction Status Date / Time codeine AdvReac Unknown Verified 05/19/23 17:41 Review of Systems ROS Statement: Those systems with pertinent positive or pertinent negative responses have been documented in the HPI. ROS Other: All systems not noted in ROS Statement are negative. Past Medical History Past Medical History: CVA/TIA, Diabetes Mellitus, Hypertension History of Any Multi-Drug Resistant Organisms: None Reported Past Surgical History: Cholecystectomy, Hernia Repair, Hysterectomy, Joint Replacement Additional Past Surgical History / Comment(s): right hip replacement Past Psychological History: Anxiety Smoking Status: Never smoker Past Alcohol Use History: Rare Past Drug Use History: None Reported - Past Family History Father Family Medical History: Chest Pain / Angina, Myocardial Infarction ([place]) Mother Family Medical History: CVA/TIA Sister(s) Family Medical History: COPD General Exam Limitations: no limitations General appearance: alert, in no apparent distress Neck exam: Present: normal inspection. Absent: tenderness, meningismus, lymphadenopathy Respiratory exam: Present: normal lung sounds bilaterally. Absent: respiratory distress, wheezes, rales, rhonchi, stridor Cardiovascular Exam: Present: regular rate, normal rhythm, normal heart sounds. Absent: systolic murmur, diastolic murmur, rubs, gallop, clicks GI/Abdominal exam: Present: soft, normal bowel sounds. Absent: distended, tenderness, guarding, rebound, rigid Right Shoulder Exam: Present: normal inspection, tenderness (Mild tenderness on posterior aspect of right shoulder.). Absent: full ROM (Limited flexion and extension due to pain. Positive Neer's and positive empty can test. Full sensation and radial pulses bilaterally. Cap refill less than 2 seconds.), swelling Upper Arm exam: Present: normal inspection, full ROM, tenderness (Diffuse tenderness along upper arm) Elbow exam: Present: normal inspection, full ROM, tenderness (Diffuse tenderness along the olecranon process). Absent: swelling Forearm Wrist exam: Present: normal inspection, full ROM. Absent: tenderness, swelling Hand Wrist exam: Present: normal inspection, full ROM. Absent: tenderness, swelling Vascular: Present: normal capillary refill. Absent: vascular compromise Neurological exam: Present: alert, oriented X3, CN II-XII intact Psychiatric exam: Present: normal affect, normal mood Skin exam: Present: warm, dry, intact, normal color. Absent: rash Course Vital Signs 01/22/24 15:10 Temperature 98.3 F Pulse Rate 68 Respiratory 16 Rate Blood Pressure 167/76 O2 Sat by Pulse 98 Oximetry Medical Decision Making - Medical Decision Making Was pt. sent in by a medical professional or institution (, PA, CLICKING MACHINE OPERATOR, urgent care, hospital, or snf...) When possible be specific @ -No Did you speak to anyone other than the patient for history (EMS, parent, family, police, friend...)? What history was obtained from this source @ -No Did you review nursing and triage notes (agree or disagree)? Why? @ -I reviewed and agree with nursing and triage notes Were old charts reviewed (outside hosp., previous admission, EMS record, old EKG, old radiological studies, urgent care reports/EKG's, snf records)? Report findings @ -No old charts were reviewed Differential Diagnosis (chest pain, altered mental status, abdominal pain women, abdominal pain men, vaginal bleeding, weakness, fever, dyspnea, syncope, headache, dizziness, GI bleed, back pain, seizure, CVA, palpatations, mental health, musculoskeletal)? @ -Differential Musculoskeletal Muscular strain, contusion, ligament sprain, fracture, arthritis, septic arthritis, bursitis, cellulitis, muscle spasm, nerve compression, DVT, arterial occlusion, herpes zoster, electrolyte abnormality, tumor.... This is not meant to be in all inclusive list EKG interpreted by me (3pts min.). @ -None X-rays interpreted by me (1pt min.). @ -X-ray of right shoulder and right elbow reveal no acute abnormality CT interpreted by me (1pt min.). @ -CT of head and neck revealed no acute abnormality, moderate to severe C4-C7 degenerative disc disease with at least moderate spinal cord stenosis U/S interpreted by me (1pt. min.). @ -None done What testing was considered but not performed or refused? (CT, X-rays, U/S, labs)? Why? @ -None What meds were considered but not given or refused? Why? @ -None Did you discuss the management of the patient with other professionals (professionals i.e. , PA, CLICKING MACHINE OPERATOR, lab, RT, psych nurse, adoption social worker, detective bowling alley, teacher, combat systems officer, rn case mgr)? Give summary @ -No Was smoking cessation discussed for >3mins.? @ -No Was critical care preformed (if so, how long)? @ -No Were there social determinants of health that impacted care today? How? (Homelessness, low income, unemployed, alcoholism, drug addiction, transportation, low edu. Level, literacy, decrease access to med. care, longterm, rehab)? @ -No Was there de-escalation of care discussed even if they declined (Discuss DNR or withdrawal of care, Hospice)? DNR status @ -No What co-morbidities impacted this encounter? (DM, HTN, Smoking, COPD, CAD, Can cer, CVA, ARF, Chemo, Hep., AIDS, mental health diagnosis, sleep apnea, morbid obesity)? @ -None Was patient admitted / discharged? Hospital course, mention meds given and route, prescriptions, significant lab abnormalities, going to OR and other pertinent info. @ -Patient was discharged. Patient was seen and evaluated for right shoulder and elbow pain status post fall 1 week ago. Patient states she also hit her head and is on Plavix. Patient is neurovascularly intact, neuro examination is unremarkable. CT of head and neck performed and was negative for acute abnormality. Right shoulder and right elbow x-ray revealed no acute abnormality. Discussed symptoms are likely due to right muscle strain. Supportive care discussed with patient in detail and patient shows understanding and agrees with plan. Strict return/alarm symptoms discussed with patient. Advised to close follow-up with PCP within the week. Patient discharged in stable condition. Case discussed with Dr. Chavez Undiagnosed new problem with uncertain prognosis? @ -No Drug Therapy requiring intensive monitoring for toxicity (Heparin, Nitro, Insulin, Cardizem)? @ -No Were any procedures done? @ -No Diagnosis/symptom? @ -Right shoulder strain Acute, or Chronic, or Acute on Chronic? @ -Acute Uncomplicated (without systemic symptoms) or Complicated (systemic symptoms)? @ -Uncomplicated Side effects of treatment? @ -No Exacerbation, Progression, or Severe Exacerbation? @ -No Poses a threat to life or bodily function? How? (Chest pain, [place], [place], pneumonia, PE, COPD, DKA, ARF, appy, cholecystitis, CVA, Diverticulitis, Homicidal, Suicidal, threat to staff... and all critical care pts) @ -No - Lab Data Lab Results 01/22/24 Range/Units 17:09 POC Glucose (mg/dL) 121 H (70-110) mg/dL POC Glu Precision Lathe Operator ID Ramon Yue Disposition Clinical Impression: Right shoulder strain Disposition: HOME SELF-CARE Condition: Stable Instructions (If sedation given, give patient instructions): Rotator Cuff Injury (ED) Additional Instructions: Please return to the Emergency Department if symptoms worsen or any other concerns. Is patient prescribed a controlled substance at d/c from ED?: No Referrals: Bobby Yepez DO [Primary Care Provider] - 1-2 days Time of Disposition: 17:33
--- NOTE | 2024-01-22 16:56 | XR ---
EXAMINATION TYPE: XR elbow complete RT DATE OF EXAM: 01/22/2024 4:33 PM CLINICAL INDICATION:Female, 78 years old with history of right shoulder injury; COMPARISON: None TECHNIQUE: XR elbow complete RT; elbow was examined in AP, lateral, and oblique projections. FINDINGS: No evidence of any acute osseous pathology, joint dislocation, or soft tissue swelling is n oted. No evidence of joint effusion is present. IMPRESSION: No evidence of acute fracture.
--- NOTE | 2024-01-22 16:57 | XR ---
EXAMINATION TYPE: XR shoulder complete RT DATE OF EXAM: 01/22/2024 4:33 PM CLINICAL INDICATION:Female, 78 years old with history of right shoulder injury; H COMPARISON: None TECHNIQUE: XR shoulder complete RT; examined in AP, internally rotated and scapular Y projections. FINDINGS: No evidence of acute osseous pathology, joint dislocation, or soft tissue swelling. The remaining po rtions of the visualized chest are unremarkable. Moderate degeneration changes of the acromion, dist al clavicle with osteophyte formation. There is osteophyte formation of the glenoid and humeral head. There is joint space narrowing of glenohumeral joint IMPRESSION: 1. No acute osseous pathology. 2. With moderate shoulder osteoarthrosis.
[2024-01-22 17:11] LABS: Glucose,Whole Blood 121 mg/dL (70-110)
--- NOTE | 2024-01-22 17:15 | CT ---
EXAMINATION TYPE: CT brain cspine wo con CT DLP: 1279.8 mGycm, Automated exposure control for dose reduction was used. DATE OF EXAM: 01/22/2024 4:50 PM COMPARISON: 05/19/2023 CLINICAL INDICATION:Female, 78 years old with history of pain; pain after fall x few days ago TECHNIQUE: Brain: Multiple axial CT images of the brain were obtained without IV contrast. Cspine: Axial CT images from the skull base to the inferior aspect of T2 we obtained without intraven ous contrast. Coronal and sagittal reformatted images were also reviewed. FINDINGS: Brain: Extra-axial spaces: No abnormal extra-axial fluid collections. Falx lipomas noted. Ventricular system: Within normal limits Cerebral parenchyma: No acute intraparenchymal hemorrhage or mass effect. The self-white junction is well differentiated. Cerebellum: Unremarkable. Mass effect: No evidence of midline shift. Intracranial vasculature: Atherosclerotic calcifications of the intracranial vessels. Soft tissues: Normal. Calvarium/osseous structures: No depressed skull fracture. Paranasal sinuses and mastoid air cells: Clear. Visualized orbits: Right aphakia Cervical spine: Fracture: None. Osseous structures: Multilevel degenerative disc disease changes with endplate spurring and disc oste ophyte complex's. Vertebral alignment: Within normal limits. Spinal canal/Neural Foramina: Disc osteophyte complexes at C4-C5 C5-6 and C6-C7 with at least moderat e spinal canal stenosis. No evidence for significant neural foraminal stenosis. Neck soft tissues: Prevertebral soft tissues are within normal limits. Other: The airway is patent. The lung apices are clear. Atherosclerosis of the carotid bifurcations. IMPRESSION: 1. No acute intracranial process. 2. No evidence of cervical spine fracture. 3. Moderate to severe C4-C7 degenerative disc disease with at least moderate spinal canal stenosis.
[2024-01-22 18:38] VITALS: BP 161/86; PULSE 63
== END 2024-01-22 18:12 | disposition home or self-care (01) ==
LOC: EC 15:00
DX: S46.911A Strain of unspecified muscle, fascia and tendon at shoulder and upper arm level, right arm, initial encounter (principal); Z88.5 Allergy status to narcotic agent; Z90.49 Acquired absence of other specified parts of digestive tract; W01.198A Fall on same level from slipping, tripping and stumbling with subsequent striking against other object, initial encounter
CPT/HCPCS: 36415; 70450; 72125; 99284